=== PATIENT | female | born 1970 | race Caucasian/White ===

== ENCOUNTER 2018-04-29 17:40 | Emergency (ER) | payer MEDICAID ==
[2018-04-29] MEDS ORDERED: CLINDAMYCIN 150 MG CAPSULE PO STA ×2 (18:00→18:27)
[2018-04-29] MEDS ORDERED: oxyCODONE 5 MG TABLET PO STA (18:00)
--- NOTE | 2018-04-29 18:04 | ED Physician Documentation ---
PD HPI HEENT - Stated complaint Stated Complaint: TOOTH PX - Chief complaint Chief Complaint: Wound - History obtained from History obtained from: Patient - History of Present Illness Timing - onset: Yesterday (Painful left mandibular toothache with some facial swelling since yesterday but no fevers.) Review of Systems Constitutional: denies: Fever, Chills Throat: reports: Dental pain / toothache. 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 - Present Medications Home Medications: Ambulatory Orders Medication Instructions Recorded Confirmed Clindamycin HCl [Clindamycin 150MG 2 tab PO QID #80 capsule 04/29/18 CAP] Diazepam [Valium] 10 mg PO ONCE #1 tablet 04/29/18 Oxycodone HCl/Acetaminophen 1 - 2 each PO Q6H PRN #14 tablet 04/29/18 [Percocet 5-325 mg Tablet] - Allergies Allergies/Adverse Reactions: Allergies Allergy/AdvReac Type Severity Reaction Status Date / Time No Known Drug Allergies Allergy Verified 04/29/18 17:48 - Social History Does the pt smoke?: Yes Smoking Status: Current every day smoker Does the pt drink ETOH?: Yes Does the pt have substance abuse?: No - Immunizations Immunizations are current?: Yes - POLST Patient has POLST: No PD ED PE NORMAL - Vitals Vital signs reviewed: Yes - General General: Alert and oriented X 3, No acute distress - HEENT HEENT: Other (She has generally poor dentition with lots of cavities. She is tender over the left mandible, premolars. There is mild overlying facial swelli ng but no palpable abscess to I&D. No sublingual edema or trismus.) - Neck Neck: Supple, no meningeal sign, No bony TTP - Neuro Neuro: Alert and oriented X 3, Normal speech Results - Vitals Vitals: Vital Signs - 24 hr 04/29/18 17:44 Temperature 36.1 C L Heart Rate 106 H Respiratory 16 Rate Blood Pressure 140/90 H O2 Saturation 98 Oxygen O2 Source Room air PD MEDICAL DECISION MAKING - Sepsis Event Vital Signs: Vital Signs - 24 hr 04/29/18 17:44 Temperature 36.1 C L Heart Rate 106 H Respiratory 16 Rate Blood Pressure 140/90 H O2 Saturation 98 Oxygen O2 Source Room air Departure - Departure Disposition: 01 Home, Self Care Clinical Impression: Dental abscess Condition: Good Record reviewed to determine appropriate education?: Yes Instructions: ED Abscess Dental Follow-Up: Mono Meza DDS [Provider Admit Priv/Credential] - Prescriptions: Clindamycin HCl [Clindamycin 150MG CAP] 2 tab PO QID #80 capsule Diazepam [Valium] 10 mg PO ONCE #1 tablet Oxycodone HCl/Acetaminophen [Percocet 5-325 mg Tablet] 1 - 2 each PO Q6H PRN #14 tablet PRN Reason: pain Comments: It is very important that you follow-up with a dentist. When it comes to dental problems like yours, the emergency department can only offer a short-term solution to your long-term problem. A couple of low cost options for dental care include: [facility] in [place], calls [phone] for an appointment Or [facility] in [place], call [phone] for an appointment. If the swelling worsens and you think you might need a procedure/incision and drainage. You can take the single Valium tablets a few minutes prior to emergency department or dental clinic arrival for anxiety. Your blood pressure was elevated today on check into the emergency department. This does not mean that you have hypertension, it is a common phenomenon to come to the emergency department and have elevated blood pressure. I recommend that you see your primary care physician within the week to have it rechecked when you are feeling better. Do not drink or drive while taking narcotic pain medication. Note that many narcotic pain relievers also contain Tylenol/acetaminophen. Please ensure that your total dose of acetaminophen from all sources does not exceed 3 g (3000 mg) per day. You may get constipated while on this medication. Take a stool softener such as Colace twice a day while you are on it. Also add an imhs-[id number] laxative such as senna or MiraLAX on any day that you do not have a bowel movement. If you received a narcotic pain medication or sedative while in the emergency department, do not drive for the next 24 hours.
[2018-04-29 18:38] VITALS: BP 135/88
== END 2018-04-29 18:37 | disposition home or self-care (01) ==
LOC: ED 17:40
DX: K04.7 Periapical abscess without sinus (principal); K02.9 Dental caries, unspecified; F17.200 Nicotine dependence, unspecified, uncomplicated; R03.0 Elevated blood-pressure reading, without diagnosis of hypertension
CPT/HCPCS: 99283; A9270

== ENCOUNTER 2021-10-09 09:08 | Emergency (ER) | payer MEDICAID ==
[2021-10-09] MEDS ORDERED: TETANUS/DIPHTHERIA/PERTUSSIS 0.5 ML SYRINGE IM ONE (09:40)
[2021-10-09] MEDS ORDERED: LIDOCAINE 2%-EPI 1:100000 20 ML MDV SUBQ STA (09:40)
[2021-10-09] MEDS ORDERED: SULFAMETH/TRIMETH DS 800/160 MG TABLET PO STA (10:17)
[2021-10-09] MEDS ORDERED: cephALEXin 250 MG CAPSULE PO STA (10:17)
--- NOTE | 2021-10-09 10:17 | ED Physician Documentation ---
History of Present Illness - Stated complaint Stated Complaint: L HIP PAIN - Chief complaint Chief Complaint: Wound - History obtained from History obtained from: Patient - History of Present Illness Timing: Other (several days) Pain level max: 9 Pain level now: 9 - Additonal information Additional information: 50-year-old female presents with an abscess to the left buttock. She states that she relapsed into using heroin recently. She has had subjective fevers and chills at home. Worse with movement, better with rest. Review of Systems Constitutional: reports: Chills. 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 Home Medications: Ambulatory Orders Medication Instructions Recorded Confirmed Sulfamethox/Trimeth 800/160 1 each PO BID #20 tablet 10/09/21 [Bactrim Ds 800/160] cephALEXin [Keflex] 500 mg PO Q6H #40 cap 10/09/21 - Allergies Allergies/Adverse Reactions: Allergies Allergy/AdvReac Type Severity Reaction Status Date / Time No Known Drug Allergies Allergy Verified 10/09/21 09:31 - Social History Does the pt smoke?: Yes Smoking Status: Current every day smoker Does the pt drink ETOH?: Yes Does the pt have substance abuse?: Yes Substance Use and Type: Marijuana, Meth - Immunizations Immunizations are current?: Yes - POLST Patient has POLST: No PD ED PE NORMAL - Vitals Vital signs reviewed: Yes - General General: Alert and oriented X 3, No acute distress - HEENT HEENT: Moist mucous membranes - Neck Neck: Supple, no meningeal sign - Cardiac Cardiac: RRR - Respiratory Respiratory: Clear bilaterally - Derm Derm: Warm and dry - Extremities Extremities: Other (Left buttock has a large cellulitic area about 10 x 10 cm. There is a 4 x 4 centimeter area of induration and fluctuance.) - Neuro Neuro: Alert and oriented X 3 - Psych Psych: Normal mood, Normal affect Results - Vitals Vitals: Vital Signs - 24 hr 10/09/21 10/09/21 09:27 10:22 Temperature 36.7 C Heart Rate 124 H 101 H Respiratory 18 16 Rate Blood Pressure 175/82 H 130/77 O2 Saturation 96 94 Oxygen O2 Source Room air - Labs Labs: Microbiology 10/09/21 10:07 Wound Culture - Preliminary Buttock - Left Procedures - Abscess I&D (location) Left buttock Preparation: Confirmed with ultrasound, Lidocaine 2%, With epi Incision: Incised with scalpel, Purulent drainage, Loculations broken, Packed, Culture obtained Other: Pt tolerated well, Dressing applied, Antibiotic prescribed PD MEDICAL DECISION MAKING - ED course Complexity details: re-evaluated patient, considered differential, d/w patient ED course: 50-year-old female with a large abscess to the left buttock. This was incised and drained. She has a large amount of surrounding cellulitis as well. Will place on oral antibiotics. She declines any pain medication. Social work also spoke with the patient and gave her resources to help with drug addiction. Tetanus shot given. Patient will return in 2 days for wound check. Patient counseled regarding signs and symptoms for which I believe and urgent re- evaluation would be necessary. Patient with good understanding of and agreement to plan and is comfortable going home at this time This document was made in part using voice recognition software. While efforts are made to proofread this document, sound alike and grammatical errors may occur. Departure - Departure Disposition: 01 Home, Self Care Clinical Impression: Abscess Cellulitis Qualifiers: Site of cellulitis: buttock Qualified Code(s): L03.317 - Cellulitis of buttock Condition: Good Instructions: ED Abscess IandD, ED Infec Skin Cellulitis Prescriptions: Sulfamethox/Trimeth 800/160 [Bactrim Ds 800/160] 1 each PO BID #20 tablet cephALEXin [Keflex] 500 mg PO Q6H #40 cap Comments: Please return here in 2 to 3 days for a wound check. Take all antibiotics until gone. Return if you worsen. Your prescriptions were sent to [facility] in [place] Discharge Date/Time: 10/09/21 11:16
[2021-10-09 10:23] VITALS: BP 130/77
--- NOTE | 2021-10-11 08:17 | ED Physician Documentation ---
ED Addendum - Addendum Addendum: 10/11/21 08:15 Patient's culture results reviewed. Positive for MRSA. Resistant to Bactrim. Patient been discharged on Keflex and Bactrim. Will transition to clindamycin as single agent with instructions to complete full 7-day course. Prescription sent to patient's preferred pharmacy. Patient contacted by nursing staff and informed of change.
== END 2021-10-09 11:16 | disposition home or self-care (01) ==
LOC: ED 09:08
DX: L02.31 Cutaneous abscess of buttock (principal); L03.317 Cellulitis of buttock; B95.62 Methicillin resistant Staphylococcus aureus infection as the cause of diseases classified elsewhere; F17.200 Nicotine dependence, unspecified, uncomplicated
CPT/HCPCS: 10061; 87070; 87181; 87205; 90471; 90715; 99283; 99284; A9270

== ENCOUNTER 2021-10-11 16:23 | Emergency (ER) | payer MEDICAID ==
[2021-10-11 16:41] VITALS: BP 149/92
--- NOTE | 2021-10-11 16:42 | ED Physician Documentation ---
PD HPI WOUND RECHECK - Stated complaint Stated Complaint: FOLLOW UP ON LT HIP PX - Chief complaint Chief Complaint: Wound - Histroy obtained from History obtained from: Patient - History of Present Illness Location: Other (L buttock) - Additional information Additional information: Patient is a 50-year-old female who presents to the emergency department for a w ound check after incision and drainage of an abscess 2 days ago on the left buttock. She has been taking Bactrim and Keflex at home. Her wound culture earlier today showed MRSA that was resistant to Bactrim. A prescription was sent to [facility] in [place] for her. Patient states that she is doing well, minimal pain. No fevers. Decreased drainage. Nothing makes it better or worse. 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 - Present Medications Home Medications: Ambulatory Orders Medication Instructions Recorded Confirmed Sulfamethox/Trimeth 800/160 1 each PO BID #20 tablet 10/09/21 [Bactrim Ds 800/160] cephALEXin [Keflex] 500 mg PO Q6H #40 cap 10/09/21 clindamycin HCL [Cleocin HCl] 450 mg PO TID 7 Days #63 cap 10/11/21 - Allergies Allergies/Adverse Reactions: Allergies Allergy/AdvReac Type Severity Reaction Status Date / Time No Known Drug Allergies Allergy Verified 10/09/21 09:31 - Social History Does the pt smoke?: Yes Smoking Status: Current every day smoker Does the pt drink ETOH?: Yes Does the pt have substance abuse?: Yes - Immunizations Immunizations are current?: Yes - POLST Patient has POLST: No PD ED PE NORMAL - Vitals Vital signs reviewed: Yes - General General: Alert and oriented X 3, No acute distress - HEENT HEENT: Moist mucous membranes - Neck Neck: Supple, no meningeal sign - Derm Derm: Warm and dry - Extremities Extremities: Other (Healing abscess to the left buttock. No further purulent drainage. Erythema improving.) - Neuro Neuro: Alert and oriented X 3 Results - Vitals Vitals: Vital Signs - 24 hr 10/11/21 16:34 Temperature 36.6 C Heart Rate 99 Respiratory 18 Rate Blood Pressure 149/92 H O2 Saturation 98 Oxygen O2 Source Room air PD MEDICAL DECISION MAKING - ED course Complexity details: reviewed results, re-evaluated patient, considered differential, d/w patient ED course: The packing was removed. A clean dressing was applied. Cultures reviewed. Clindamycin was already sent into the pharmacy for her earlier today. We will have her stop the Bactrim and Keflex and start the clindamycin. Patient counseled regarding signs and symptoms for which I believe and urgent re- evaluation would be necessary. Patient with good understanding of and agreement to plan and is comfortable going home at this time This document was made in part using voice recognition software. While efforts are made to proofread this document, sound alike and grammatical errors may occur. Departure - Departure Disposition: 01 Home, Self Care Clinical Impression: Abscess Condition: Good Instructions: ED Abscess IandD Follow-Up: your,doctor in 4-5 days [Other] Comments: A new prescription of clindamycin was sent to [facility] in [place] for you. You can stop the Bactrim and Keflex. Take all antibiotics until gone. Return if you worsen. If you're failing to improve over the next few days, please return for another wound check. Discharge Date/Time: 10/11/21 16:45
== END 2021-10-11 16:45 | disposition home or self-care (01) ==
LOC: ED 16:23
DX: L02.31 Cutaneous abscess of buttock (principal); B95.62 Methicillin resistant Staphylococcus aureus infection as the cause of diseases classified elsewhere; Z16.39 Resistance to other specified antimicrobial drug; F17.200 Nicotine dependence, unspecified, uncomplicated
CPT/HCPCS: 99281; 99282

== ENCOUNTER 2022-10-16 11:15 | Inpatient (IN) | payer MEDICAID ==
[2022-10-16] MEDS ORDERED: CEFEPIME 1 GM in SODIUM CHLORIDE 0.9% MINIBAG 100 ML IV STA (12:39)
[2022-10-16] MEDS ORDERED: VANCOMYCIN INJ 1.5 GM in SODIUM CHLORIDE 0.9% 500 ML IV STA (12:39)
[2022-10-16] MEDS ORDERED: NICOTINE 21 MG PATCH TOP STA (12:40)
[2022-10-16] MEDS ORDERED: LORazepam 2 MG/ML VIAL IVP STA (12:40)
--- NOTE | 2022-10-16 12:54 | ED Physician Documentation ---
PD HPI WOUND RECHECK - Stated complaint Stated Complaint: LEG WOUND - Chief complaint Chief Complaint: Wound - Histroy obtained from History obtained from: Patient - Additional information Additional information: 51-year-old woman with history of hospitalization for MRSA, and longstanding IV drug use presents with multiple wounds that have progressed on all extremities. The worst on the right lower extremity, she is developed purulent foul-smelling wounds there. She does not feel systemically ill with fevers or chills. 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 - Allergies Allergies/Adverse Reactions: Allergies Allergy/AdvReac Type Severity Reaction Status Date / Time No Known Drug Allergies Allergy Verified 10/16/22 11:31 - Social History Does the pt smoke?: Yes Smoking Status: Current every day smoker Does the pt drink ETOH?: Yes Does the pt have substance abuse?: Yes - Immunizations Immunizations are current?: Yes - POLST Patient has POLST: No PD ED PE NORMAL - Vitals Vital signs reviewed: Yes - General General: Alert and oriented X 3, No acute distress - Cardiac Cardiac: RRR, No murmur - Respiratory Respiratory: No respiratory distress, Clear bilaterally - Abdomen Abdomen: Non tender - Extremities Extremities: Other (She has multiple wounds on all extremities. There are some early abscesses on both deltoids and track ashby. She has an early abscess on the medial left knee and multiple deep ulcers and necrotic areas mostly on the right lateral lower leg.) - Neuro Neuro: Alert and oriented X 3, Normal speech Results - Vitals Vitals: Vital Signs - 24 hr 10/16/22 10/16/22 11:26 13:14 Temperature 36.8 C 36.6 C Heart Rate 99 79 Respiratory 16 12 Rate Blood Pressure 148/86 H 110/58 L O2 Saturation 98 98 Oxygen O2 Source Room air - Labs Labs: Laboratory Tests 10/16/22 10/16/22 10/16/22 12:52 12:52 12:52 WBC 9.0 RBC 4.95 Hgb 13.4 Hct 41.5 MCV 83.8 MCH 27.1 MCHC 32.3 RDW 12.5 Plt Count 392 MPV 9.6 Neut # (Auto) 6.1 Lymph # (Auto) 1.9 Ralls # (Auto) 0.6 Eos # (Auto) 0.4 Baso # (Auto) 0.1 Absolute Nucleated RBC 0.00 Nucleated RBC % 0.0 Sodium 140 Potassium 3.4 L Chloride 105 Carbon Dioxide 28 Anion Gap 7.0 BUN 14 Creatinine 0.7 Estimated GFR (MDRD) 89 Glucose 129 H Lactic Acid 1.2 Calcium 8.9 Magnesium 2.1 Salicylates < 6.0 Acetaminophen < 10 L Ethyl Alcohol < 5.0 Procedures - General procedure General procedure: She was difficult for IV access, I personally placed a long 22-gauge IV in the right cephalic vein using real-time ultrasound guidance which flushed and stephanie well. PD Medical Decision Making - ED course ED course: 51-year-old woman with IV drug use presents with multiple skin wounds and ulcers, some of which are quite large including necrotic area to the right calf that is palm-sized and multiple abscesses, the largest of which is on the right lateral upper leg measuring about 5 cm in diameter. A culture was taken from that 1 during exam. She is not systemically ill. Her CBC is reviewed and normal. Lactate reviewed and normal. I discussed the case with Dr. Ricco Beavers, our on-call surgeon at 1:25 PM as he will need to consult and consider operative wound care. I presented the patient to Dr. Calvillo, our hospitalist at 1:30 PM. She received 2 mg of IV lorazepam here with excellent response with regard to anxiolysis as she was very anxious. She received cefepime and vancomycin for empiric coverage for skin infection. There is no evidence of NSTI. Departure - Departure Disposition: [facility] DC/Xfer Clinical Impression: Multiple abscesses of both legs, IV drug user Condition: Serious
[2022-10-16 13:22] LABS: BASOPHILS # (AUTO) 0.1 10^3/uL (0.0-0.1); BASOPHILS % (AUTO) 0.7 %; EOSINOPHILS # (AUTO) 0.4 10^3/uL (0.0-0.7); HCT - HEMATOCRIT 41.5 % (37.0-47.0); HGB - HEMOGLOBIN 13.4 g/dL (12.0-16.0); LYMPHOCYTES # (AUTO) 1.9 10^3/uL (1.5-3.5); LYMPHOCYTES % (AUTO) 20.7 %; MEAN CORPUSCULAR HEMOGLOBIN 27.1 pg (27.0-31.0); MEAN CORPUSCULAR HGB CONC 32.3 g/dL (32.0-36.0); MEAN CORPUSCULAR VOLUME 83.8 fL (81.0-99.0); MEAN PLATELET VOLUME 9.6 fL (7.9-10.8); MONOCYTES # (AUTO) 0.6 10^3/uL (0.0-1.0); MONOCYTES % (AUTO) 6.9 %; NEUTROPHILS # (AUTO) 6.1 10^3/uL (1.5-6.6); NEUTROPHILS % (AUTO) 67.5 %; PLT - PLATELET COUNT 392 10^3/uL (130-450); RED BLOOD COUNT 4.95 10^6/uL (4.20-5.40); RED CELL DISTRIBUTION WIDTH 12.5 % (12.0-15.0)
[2022-10-16 13:31] LABS: ACETAMINOPHEN < 10 ug/mL (10-30); BUN - BLOOD UREA NITROGEN 14 mg/dL (6-20); CALCIUM 8.9 mg/dL (8.5-10.3); CARBON DIOXIDE - CO2 28 mmol/L (21-32); CHLORIDE 105 mmol/L (101-111); CREATININE 0.7 mg/dL (0.4-1.0); ETOH - ETHANOL < 5.0 mg/dL; GFR - MDRD 89 (>89); GLUCOSE 129 mg/dL (70-100); MAGNESIUM 2.1 mg/dL (1.7-2.8); POTASSIUM 3.4 mmol/L (3.5-5.0); SALICYLATE < 6.0 mg/dL; SODIUM 140 mmol/L (135-145)
[2022-10-16] MEDS ORDERED: ONDANSETRON 4 MG/2 ML VIAL IVP PRN (13:35)
[2022-10-16] MEDS ORDERED: ACETAMINOPHEN 325 MG TABLET PO PRN (13:35)
[2022-10-16] MEDS ORDERED: oxyCODONE 5 MG TABLET PO PRN (13:35)
[2022-10-16] MEDS ORDERED: SODIUM CHLORIDE FLUSH 0.9% 10 ML SYRINGE IVP PRN (13:35)
[2022-10-16] MEDS ORDERED: ONDANSETRON ODT 4 MG TABLET TL PRN (13:35)
--- NOTE | 2022-10-16 13:35 | HISTORY & PHYSICAL EXAMINATION ---
Chief Complaint - Chief Complaint Chief Complaint: oozing wounds <Stella Calvillo - Last Filed: 10/16/22 18:23> History of Present Illness <Ricky Williamson - Last Filed: 10/16/22 16:26> - Admitted From Admitted From:: home - History Obtained From Records Reviewed: [facility] History obtained from: patient Exam Limitations: none <RajinderStella Mcleod - Last Filed: 10/16/22 18:23> - History of Present Illness HPI Comment/Other: HPI Cont w/ Student: Onset of ulcerations were a few months back, but patient came in today because of worsening "size and oozing" of ulcerations on right lateral leg. The ulcers are characterized as "itchy and painful" rated 7/10 pain. When asked about impact on life, patient states that she's worried about how bad these abbesses can get and would like to get them checked out. (TeriRicky) 51-year-old white female who has an IV drug abuse problem with heroin and cocaine. Lately she has been cutting her heroin and cocaine with something called xylazine. Xylazine can cause tissue necrosis. She says that she has had multiple wounds for a while now on her legs and arms and she is coming in because they smell. She says that they are also turning black. She denies fever, chills, sweats. Denies any weakness. She has had previous hospitalizations for MRSA. In the emergency room her admission temperature was 36.8. Heart rate 99. Blood pressure 148/86. Respirations 16. 98% on room air. Physical exam findings included an alert and oriented female, no respiratory distress, a benign abdomen but she had multiple wounds on all extremities. Early abscesses on the deltoids, early abscess in the medial left knee and multiple deep ulcers and necrotic areas along the right lateral lower leg. Some of these are as large as the hand. Her CBC was normal. Lactic acid was 1.2. We discussed the fact that she may need surgical intervention. He states that he is already spoken to general surgery and general surgery is on board for doing debridement if needed. (Stella Calvillo) History - Family & Social History Family History: Mother: , Cancer ("Cancer of abdomen" ), Father: Alive and Well (Dx: Hep C) Living arrangement: Other (Living with boyfriend at [facility]) Living Situation: Other (See living arrangement ) Social History Notes: Pt has a daughter steven that lives in [place]. 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 Pt notes verbally her power of business attorney is Zbigniew, her boyfriend, whom she lives with at [facility]. - Substance History Use: Uses substance without health or social issues: Cocaine, Opioid (Heroin, 1- 2 times a day ) Abuse: Recurrent use of substance despite neg consequences: Cocaine, Opioid <Ricky Williamson - Last Filed: 10/16/22 16:26> - Past Medical History MRSA Hx?: Yes Other Past Medical History: Previous skin infection and bacteremia with MRSA in [facility]. She says she was at the [facility], [place] operated by [facility] approximately 5 months ago when mom . 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 - Family & Social History Living arrangement: At home - POLST Patient has POLST: No POLST Status: Full Code <Stella Calvillo - Last Filed: 10/16/22 18:23> Meds/Allgy <Ricky Williamson - Last Filed: 10/16/22 16:26> <Stella Calvillo - Last Filed: 10/16/22 18:23> - Home Medications Home Medications: Ambulatory Orders Medication Instructions Recorded Confirmed No Known Home Medications 10/16/22 10/16/22 - Allergies Allergies/Adverse Reactions: Allergies Allergy/AdvReac Type Severity Reaction Status Date / Time No Known Drug Allergies Allergy Verified 10/16/22 11:31 Review of Systems - Integumentary Integumentary: reports: Pruritis, Other (Ulcerations) <Ricky Williamson - Last Filed: 10/16/22 16:26> - All Other Systems All Other Systems: reports: Other (11 point review of systems was done. She was adamant that other than the skin problem she did not have any other positive review of systems.) <Stella Calvillo - Last Filed: 10/16/22 18:23> <Stella Calvillo - Last Filed: 10/16/22 18:23> Prior Level of Functionality: Completely independent with activities of daily living. Dresses herself, feed herself. (Stella Calvillo) Exam - Physical Exam General Appearance: positive: Anxious Skin: positive: Puncture wound (R lateral leg has 3 large 1" ulcerations, L leg has 4 smaller ulcerations.), Other <Ricky Williamson - Last Filed: 10/16/22 16:26> - Physical Exam General Appearance: positive: Alert, Anxious, Other (Thin well-groomed female. No acute distress. Very calm. No evidence of withdrawal) Eyes Bilateral: positive: PERRL, EOMI ENT: positive: No signs of dehydration Neck: positive: No JVD. negative: Stiff neck Respiratory: positive: No respiratory distress. negative: Wheezes, Rales, Rhonchi Cardiovascular: positive: Regular rate & rhythm. negative: Systolic murmur Peripheral Pulses: positive: 1+ Abdomen: positive: Non-tender, No organomegaly, Nml bowel sounds Extremities: positive: Other (Tender upper right biceps area with multiple, multiple abscesses visible all along her skin muscle. Oozing. Multiple abscesses on dorsum of hand, left lateral leg, right leg, these were centimeter by centimeter those 2 are using 1 or 1 leg. Many of these bruising. Slightly warm. None of these s) Neurologic/Psychiatric: positive: Oriented x3, CN's nml (2-12), Motor nml <Stella Calvillo - Last Filed: 10/16/22 18:23> - Vital Signs Vital Signs: Vital Signs x48h Temp Pulse Pulse Resp BP BP Pulse Ox 10/16/22 16:00 36.4 C L 82 18 126/71 99 10/16/22 14:40 36.4 C L 85 18 126/71 99 10/16/22 13:14 36.6 C 79 12 110/58 L 98 10/16/22 11:26 36.8 C 99 16 148/86 H 98 Conclusion/Plan - Problem List (1) Multiple abscesses of both legs Conclusion/Plan: Patient left AMA - Lab Results Fish Bones: 10/16/22 14:15 10/16/22 14:15 <Ricky Williamson - Last Filed: 10/16/22 16:26> - Problem List (2) IV drug user Conclusion/Plan: With heroin. She has been through rehab a couple of times. She says that she just back slides. Right now she is not thinking so much about rehab but just getting the skin infection taken care of (3) Hypokalemia Conclusion/Plan: Oral replacement ordered. - Lab Results Lab results reviewed: Yes Fish Bones: 10/16/22 14:15 10/16/22 14:15 <Stella Calvillo - Last Filed: 10/16/22 18:23> Core Measures - Anticipated LOS I expect patient to be DC'd or transferred within 96 hours.: Yes - DVT/VTE - Prophylaxis VTE/DVT Prophylaxis med ordered at admit?: Yes <Stella Calvillo - Last Filed: 10/16/22 18:23>
[2022-10-16 14:21] LABS: BASOPHILS # (AUTO) 0.1 10^3/uL (0.0-0.1); BASOPHILS % (AUTO) 0.7 %; EOSINOPHILS # (AUTO) 0.4 10^3/uL (0.0-0.7); EOSINOPHILS % (AUTO) 4.5 %; HCT - HEMATOCRIT 43.9 % (37.0-47.0); LYMPHOCYTES # (AUTO) 1.7 10^3/uL (1.5-3.5); LYMPHOCYTES % (AUTO) 20.9 %; MEAN CORPUSCULAR HGB CONC 31.9 g/dL (32.0-36.0); MEAN CORPUSCULAR VOLUME 84.6 fL (81.0-99.0); MEAN PLATELET VOLUME 9.3 fL (7.9-10.8); MONOCYTES # (AUTO) 0.6 10^3/uL (0.0-1.0); MONOCYTES % (AUTO) 7.9 %; NEUTROPHILS # (AUTO) 5.4 10^3/uL (1.5-6.6); NEUTROPHILS % (AUTO) 65.8 %; PLT - PLATELET COUNT 373 10^3/uL (130-450); RED BLOOD COUNT 5.19 10^6/uL (4.20-5.40); RED CELL DISTRIBUTION WIDTH 12.5 % (12.0-15.0); WHITE BLOOD COUNT 8.1 x10^3/uL (4.8-10.8)
--- NOTE | 2022-10-16 14:31 | PHARMACY PROGRESS NOTE ---
- Therapy Status Therapy status: Awaiting steady state Basis for treatment: Empirical Treatment indication: SSTI, hx MRSA Trough goal: AUC 400-600 mcg*hr/mL - CHELSEY Risk Risk level for Acute Kidney Injury: Low - Monitoring and Recommendation Clinical response to treatment: I&O Previous 24 hours 10/14/22 10/15/22 10/16/22 23:59 23:59 23:59 Intake Total 100 Balance 100 Lab Results 10/16/22 12:52 BUN 14 Creatinine 0.7 Estimated GFR (MDRD) 89 Monitoring plan: Daily serum creatinine Next trough due (date/time): 10/18 @ 1330 Areas for additional monitoring: IV to PO when appropriate, Therapy de- escalation based on culture results Pharmacy recommendation: Continue current regime (Patient received a loading dose of 1.5 gm in the ER (10/16 @ 1400). Initiate maintenance dose of 1.25 gm IV q12h starting 10/17 @ 0200 for predicted AUC/NEO of 454 mcg*hr/mL.)
[2022-10-16 14:32] LABS: ALBUMIN 3.2 g/dL (3.2-5.5); ALBUMIN/GLOBULIN RATIO 0.7 (1.0-2.2); BILIRUBIN,TOTAL 0.7 mg/dL (0.2-1.0); CALCIUM 8.9 mg/dL (8.5-10.3); CREATININE 0.7 mg/dL (0.4-1.0); POTASSIUM 3.3 mmol/L (3.5-5.0); TOTAL PROTEIN 7.7 g/dL (6.7-8.2)
--- NOTE | 2022-10-16 15:33 | PROVIDER PROGRESS NOTE ---
Subjective - Prog Note Date Prog Note Date: 10/16/22 Prog Note Time: 15:30 - Subjective Pt reports feeling: No change (No change from ER visit.) Subjective: Patient is a 51-yo-F with a history of MRSA infections and recreational drug use coming in today with "sores all over her body". Patient states that for the last few months she's noticed sores on both of her arms and her legs. However, what made her come get evaluated in the hospital today is that the ulcerations on her R leg has been "getting bigger and oozing more". The sores are characterized as itchy and painful, rated a 7/10. Patient has not tried any medications for this issue. Itching makes it worse and the patient finds it difficult to stop scratching. Current Medications - Current Medications Current Medications: Not currently taking any medications at home. Objective - Vital Signs/Intake & Output Vital Signs: Vital Signs x48h Temp Pulse Resp BP Pulse Ox 10/16/22 13:14 36.6 C 79 12 110/58 L 98 10/16/22 11:26 36.8 C 99 16 148/86 H 98 Intake & Output: Intake & Output 10/13/22 10/14/22 10/15/22 10/16/22 23:59 23:59 23:59 23:59 Intake Total 100 Balance 100 - Objective General Appearance: positive: Alert, Anxious Skin: positive: Puncture wound, Other (Ulcerations on bilateral upper arms and Bilateral lateral quads. R lateral leg has 3 large 1" ulcerations, L leg has 4 smaller ulcerations.) Neurologic/Psychiatric: positive: Oriented x3 - Lab Results Fish Bones: 10/16/22 14:15 10/16/22 14:15 Other Labs: Lab Results x24hrs 10/16/22 10/16/22 10/16/22 Range/Units 14:15 14:15 12:52 WBC 8.1 (4.8-10.8) x10^3/uL RBC 5.19 (4.20-5.40) 10^6/uL Hgb 14.0 (12.0-16.0) g/dL Hct 43.9 (37.0-47.0) % MCV 84.6 (81.0-99.0) fL MCH 27.0 (27.0-31.0) pg MCHC 31.9 L (32.0-36.0) g/dL RDW 12.5 (12.0-15.0) % Plt Count 373 (130-450) 10^3/uL MPV 9.3 (7.9-10.8) fL Neut # (Auto) 5.4 (1.5-6.6) 10^3/uL Lymph # (Auto) 1.7 (1.5-3.5) 10^3/uL [place] # (Auto) 0.6 (0.0-1.0) 10^3/uL Eos # (Auto) 0.4 (0.0-0.7) 10^3/uL Baso # (Auto) 0.1 (0.0-0.1) 10^3/uL Absolute Nucleated RBC 0.00 x10^3/uL Nucleated RBC % 0.0 /100WBC Sodium 141 (135-145) mmol/L Potassium 3.3 L (3.5-5.0) mmol/L Chloride 106 (101-111) mmol/L Carbon Dioxide 30 (21-32) mmol/L Anion Gap 5.0 L (6-13) BUN 14 (6-20) mg/dL Creatinine 0.7 (0.4-1.0) mg/dL Estimated GFR (MDRD) 89 (>89) Glucose 101 H (70-100) mg/dL Lactic Acid 1.2 (0.5-2.2) mmol/L Calcium 8.9 (8.5-10.3) mg/dL Magnesium (1.7-2.8) mg/dL Total Bilirubin 0.7 (0.2-1.0) mg/dL AST 38 (10-42) IU/L ALT 33 (10-60) IU/L Alkaline Phosphatase 91 (42-121) IU/L Total Protein 7.7 (6.7-8.2) g/dL Albumin 3.2 (3.2-5.5) g/dL Globulin 4.5 H (2.1-4.2) g/dL Albumin/Globulin Ratio 0.7 L (1.0-2.2) Salicylates mg/dL Acetaminophen (10-30) ug/mL Ethyl Alcohol mg/dL 10/16/22 10/16/22 Range/Units 12:52 12:52 WBC 9.0 (4.8-10.8) x10^3/uL RBC 4.95 (4.20-5.40) 10^6/uL Hgb 13.4 (12.0-16.0) g/dL Hct 41.5 (37.0-47.0) % MCV 83.8 (81.0-99.0) fL MCH 27.1 (27.0-31.0) pg MCHC 32.3 (32.0-36.0) g/dL RDW 12.5 (12.0-15.0) % Plt Count 392 (130-450) 10^3/uL MPV 9.6 (7.9-10.8) fL Neut # (Auto) 6.1 (1.5-6.6) 10^3/uL Lymph # (Auto) 1.9 (1.5-3.5) 10^3/uL [place] # (Auto) 0.6 (0.0-1.0) 10^3/uL Eos # (Auto) 0.4 (0.0-0.7) 10^3/uL Baso # (Auto) 0.1 (0.0-0.1) 10^3/uL Absolute Nucleated RBC 0.00 x10^3/uL Nucleated RBC % 0.0 /100WBC Sodium 140 (135-145) mmol/L Potassium 3.4 L (3.5-5.0) mmol/L Chloride 105 (101-111) mmol/L Carbon Dioxide 28 (21-32) mmol/L Anion Gap 7.0 (6-13) BUN 14 (6-20) mg/dL Creatinine 0.7 (0.4-1.0) mg/dL Estimated GFR (MDRD) 89 (>89) Glucose 129 H (70-100) mg/dL Lactic Acid (0.5-2.2) mmol/L Calcium 8.9 (8.5-10.3) mg/dL Magnesium 2.1 (1.7-2.8) mg/dL Total Bilirubin (0.2-1.0) mg/dL AST (10-42) IU/L ALT (10-60) IU/L Alkaline Phosphatase (42-121) IU/L Total Protein (6.7-8.2) g/dL Albumin (3.2-5.5) g/dL Globulin (2.1-4.2) g/dL Albumin/Globulin Ratio (1.0-2.2) Salicylates < 6.0 mg/dL Acetaminophen < 10 L (10-30) ug/mL Ethyl Alcohol < 5.0 mg/dL Assessment/Plan - Problem List (1) Multiple abscesses of both legs Impression: R lateral leg has 3 large 1" ulcerations, L leg has 4 smaller ulcerations. (2) IV drug user Impression: Current Heroin user, 1-2 times a day, in and out of rehab
[2022-10-16 15:47] VITALS: BP 126/71
--- NOTE | 2022-10-16 16:10 | Discharge Plan ---
Discharge Plan Problem Reviewed?: Yes Disposition: Against Medical Advice Condition: Serious No Smoking: If you smoke, Please STOP! Call for help.
--- NOTE | 2022-10-16 16:16 | CONSULTATION NOTE ---
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 - POLST Patient has POLST: No Meds/Allgy - Home Medications Home Medications: Ambulatory Orders Medication Instructions Recorded Confirmed No Known Home Medications 10/16/22 10/16/22 - Allergies Allergies/Adverse Reactions: Allergies Allergy/AdvReac Type Severity Reaction Status Date / Time No Known Drug Allergies Allergy Verified 10/16/22 11:31 Exam - Vital Signs Vital Signs: Vital Signs x48h Temp Pulse Pulse Resp BP BP Pulse Ox 10/16/22 16:00 36.4 C L 82 18 126/71 99 10/16/22 14:40 36.4 C L 85 18 126/71 99 10/16/22 13:14 36.6 C 79 12 110/58 L 98 10/16/22 11:26 36.8 C 99 16 148/86 H 98 - Physical Exam General Appearance: positive: No acute distress, Lethargic Eyes Bilateral: positive: PERRL, EOMI, No scleral icterus ENT: positive: No signs of dehydration Neck: positive: No JVD, Trachea midline Respiratory: positive: No respiratory distress Abdomen: positive: Non-tender, No distention Extremities: positive: Other (muliple areas of skin inflammation extemities, primarily lower extremities. nearly 4 cm dry black eschar rle area of prior recent debridment rle that is open and relatively clean multiple areas up to 2 cm areas of skin inflammation/ induration without fluctuance, or significant cellulitis l) Conclusion/Plan - Lab Results Fish Bones: 10/16/22 14:15 10/16/22 14:15 - Other Other Results/Comments: multiple small areas extremities with induration without significant cellulitis or fluctuance dry black eschar right lower leg without cellulitis or fluctuance agree with abxs and dressing care. will follow closely and perform I and D and or debridement if she develops a fluctuant abscess or area of moist necrosis currently she mostly has areas of inflammation and induration
[2022-10-16] MEDS ORDERED: SODIUM CHLORIDE FLUSH 0.9% 10 ML SYRINGE IVP SCH (17:00)
--- NOTE | 2022-10-16 18:27 | DISCHARGE SUMMARY ---
Discharge Summary Admit Date: 10/16/22 Discharge Date: 10/16/22 Discharging Provider: Stella Calvillo MD Primary Care Provider: No PCP Code Status: Attempt Resuscitation Condition at Discharge: Serious Discharge Disposition: 07 Against Medical Advice - DIAGNOSES Discharge Diagnoses with Status of Each Condition: 1. Multiple abscesses of arms and legs 2. IV drug abuser 3. Hypokalemia - HPI History of Present Illness: Patient was in the hospital less than 3 hours. Please refer to history and physical. We were going to start vancomycin, and surgical consult had already seen here and scheduled her for possible incision and debridement. She left AMA - ALLERGIES Allergies/Adverse Reactions: Allergies Allergy/AdvReac Type Severity Reaction Status Date / Time No Known Drug Allergies Allergy Verified 10/16/22 11:31 - MEDICATIONS Home Medications: Ambulatory Orders Medication Instructions Recorded Confirmed No Known Home Medications 10/16/22 10/16/22 - LABS Result Diagrams: 10/16/22 14:15 10/16/22 14:15
[2022-10-17] MEDS ORDERED: VANCOMYCIN INJ 1 GM, VANCOMYCIN INJ 250 MG in SODIUM CHLORIDE 0.9% 250 ML IV SCH (02:00)
[2022-10-17] MEDS ORDERED: ENOXAPARIN 40 MG/0.4 ML SYRINGE SUBQ SCH (09:00)
== END 2022-10-16 16:08 | disposition left against medical advice (07) | DRG 603 ==
LOC: ED 11:15 → MS2 13:35
PROVIDERS: ADMIT Specialist; ATTEND Specialist
DX: L02.416 Cutaneous abscess of left lower limb (principal); L02.413 Cutaneous abscess of right upper limb; I96 Gangrene, not elsewhere classified; L02.415 Cutaneous abscess of right lower limb; F11.10 Opioid abuse, uncomplicated; F14.10 Cocaine abuse, uncomplicated; Z53.29 Procedure and treatment not carried out because of patient's decision for other reasons; E87.6 Hypokalemia; Z86.14 Personal history of Methicillin resistant Staphylococcus aureus infection; F17.200 Nicotine dependence, unspecified, uncomplicated; F41.9 Anxiety disorder, unspecified
CPT/HCPCS: 36415; 80048; 80053; 80307; 80320; 80329; 83605; 83735; 85025; 87040; 96365; 96375; 99284; 99285; A9270; J2060; J3370

== ENCOUNTER 2022-12-18 18:22 | Emergency (ER) | payer MEDICAID ==
[2022-12-18 18:29] VITALS: BP 160/84
[2022-12-18] MEDS ORDERED: CLINDAMYCIN 150 MG CAPSULE PO STA (18:36)
--- NOTE | 2022-12-18 18:36 | ED Physician Documentation ---
PD HPI LOWER EXT INJURY - Stated complaint Stated Complaint: L LEG PX - Chief complaint Chief Complaint: Ext Problem - History obtained from History obtained from: Patient - Additional information Additional information: 52-year-old woman who uses a intramuscular drugs. She has been having left leg pain and heat over the last couple of days and felt hot at home although no measured fever. Of note I actually admitted her for multiple abscesses about 2 months ago but she promptly signed out AMA. She continues to abuse drugs. 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 - Present Medications Home Medications: Ambulatory Orders Medication Instructions Recorded Confirmed clindamycin HCL [Cleocin HCl] 300 mg PO QID #28 cap 12/18/22 - Allergies Allergies/Adverse Reactions: Allergies Allergy/AdvReac Type Severity Reaction Status Date / Time No Known Drug Allergies Allergy Verified 12/18/22 18:26 - Social History Does the pt smoke?: Yes Smoking Status: Current every day smoker Does the pt drink ETOH?: Yes Does the pt have substance abuse?: Yes - Immunizations Immunizations are current?: Yes - POLST Patient has POLST: No POLST Status: Full Code PD ED PE NORMAL - Vitals Vital signs reviewed: Yes - General General: Alert and oriented X 3, No acute distress - Extremities Extremities: Other (Her legs look significantly better than they did when I admitted her 2 months ago. There is 1 draining wound on the right lateral thigh and 1 on the left anterior thigh. She has mild cellulitis of the anterior left h[place].) - Neuro Neuro: Alert and oriented X 3, Normal speech Results - Vitals Vitals: Vital Signs - 24 hr 12/18/22 18:26 Temperature 36.5 C Heart Rate 110 H Respiratory 18 Rate Blood Pressure 160/84 H O2 Saturation 97 Oxygen O2 Source Room air PD Medical Decision Making - ED course ED course: Culture from 2 months ago reviewed. It was MRSA that was also resistant to Bactrim but was sensitive to clindamycin so this would be a reasonable choice. Departure - Departure Disposition: 01 Home, Self Care Clinical Impression: Wound infection, Injection of illicit drug within last 12 months Condition: Good Record reviewed to determine appropriate education?: Yes Instructions: ED Wound Care Prescriptions: clindamycin HCL [Cleocin HCl] 300 mg PO QID #28 cap Comments: You should shower daily with soap and water. Keep them covered with dry dressings. Call your doctor to arrange a follow-up appointment, make the next available appointment. In the interim, return anytime if worse or if new symptoms develop. I strongly suggest that you check into detox, there is 1 in [place]: [facility] service in [place], [place] Address: [address] [place] [address], [place] [address]
== END 2022-12-18 19:10 | disposition home or self-care (01) ==
LOC: ED 18:22
DX: L08.9 Local infection of the skin and subcutaneous tissue, unspecified (principal); F17.200 Nicotine dependence, unspecified, uncomplicated
CPT/HCPCS: 99282; 99283; A9270

== ENCOUNTER 2023-12-08 23:19 | Inpatient (IN) | payer MEDICAID ==
--- NOTE | 2023-12-08 23:34 | ED Physician Documentation ---
PD HPI DYSPNEA - Stated complaint Stated Complaint: SOA - History obtained from History obtained from: Patient - Additional information Additional information: HPI from patient Patient complains of gradual onset of dyspnea over the past 2 days, steadily worsening, associated with cough and wheezing. She complains of fatigue, sweats and chills (has not taken her temperature at home).Past medical history includes asthma although, per her description, it sounds like she has not had asthma exacerbations for many years.She also readily admits to IV drug use (heroin, fentanyl, cocaine amongst others). She says the last time she used was ye sterday. Review of Systems Constitutional: reports: Chills, Sweats Cardiac: denies: Chest pain / pressure, Palpitations, Pedal edema Respiratory: reports: Dyspnea, Cough, Wheezing. 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 - Present Medications Home Medications: Ambulatory Orders Medication Instructions Recorded Confirmed No Known Home Medications 12/08/23 12/08/23 - Allergies Allergies/Adverse Reactions: Allergies Allergy/AdvReac Type Severity Reaction Status Date / Time No Known Drug Allergies Allergy Verified 12/08/23 23:44 - Social History Does the pt smoke?: Yes Smoking Status: Current every day smoker Does the pt drink ETOH?: Yes Does the pt have substance abuse?: Yes - Immunizations Immunizations are current?: Yes - POLST Patient has POLST: No POLST Status: Full Code PD ED PE NORMAL - Vitals Vital signs reviewed: Yes - General General: Alert and oriented X 3, Well developed/nourished, Other (tachypneic, speaking in abbreviated (1-2 word) sentences) - Neck Neck: Supple, no meningeal sign - Abdomen Abdomen: Soft, Non tender - Extremities Extremities: No edema PD ED PE EXPANDED - Cardiac Cardiac: Tachy, Regular Rhythm - Respiratory Respiratory: Wheezing, Rhonchi - Derm Derm: Track ashby (BUE) Results - Vitals Vitals: Vital Signs - 24 hr 12/08/23 12/08/23 12/08/23 23:35 23:40 23:55 Temperature 37.4 C Heart Rate 113 H 103 H 94 Respiratory 25 H 28 H Rate Blood Pressure 127/59 L 118/72 O2 Saturation 69 L 95 94 If not protocol 15 6 : Oxygen Flow, liters/minute 12/09/23 12/09/23 12/09/23 00:04 00:15 00:29 Temperature Heart Rate 94 91 90 Respiratory 22 22 22 Rate Blood Pressure 122/63 122/71 111/68 O2 Saturation 95 93 92 If not protocol 6 6 6 : Oxygen Flow, liters/minute 12/09/23 12/09/23 12/09/23 00:44 00:59 01:15 Temperature Heart Rate 95 90 88 Respiratory 24 23 20 Rate Blood Pressure 125/71 116/69 112/68 O2 Saturation 91 L 91 L 91 L If not protocol 6 6 6 : Oxygen Flow, liters/minute 12/09/23 12/09/23 12/09/23 01:25 01:28 01:45 Temperature Heart Rate 88 88 93 Respiratory 32 H 22 22 Rate Blood Pressure 124/73 120/66 O2 Saturation 96 90 L If not protocol 6 6 : Oxygen Flow, liters/minute 12/09/23 12/09/23 12/09/23 02:00 02:14 02:30 Temperature Heart Rate 92 91 87 Respiratory 20 20 16 Rate Blood Pressure 106/74 117/69 115/67 O2 Saturation 90 L 89 L 88 L If not protocol 6 6 6 : Oxygen Flow, liters/minute 12/09/23 12/09/23 12/09/23 03:00 03:30 03:45 Temperature Heart Rate 83 82 82 Respiratory 18 20 16 Rate Blood Pressure 124/73 113/68 113/68 O2 Saturation 92 92 91 L If not protocol 6 6 : Oxygen Flow, liters/minute 12/09/23 12/09/23 12/09/23 04:00 04:30 05:00 Temperature Heart Rate 81 84 80 Respiratory 18 20 16 Rate Blood Pressure 107/66 117/71 116/73 O2 Saturation 93 95 93 If not protocol 6 6 6 : Oxygen Flow, liters/minute 12/09/23 12/09/23 12/09/23 05:15 05:30 06:00 Temperature Heart Rate 76 78 74 Respiratory 16 14 14 Rate Blood Pressure 102/66 102/72 108/65 O2 Saturation 93 91 L 94 If not protocol 6 6 6 : Oxygen Flow, liters/minute 12/09/23 12/09/23 12/09/23 06:21 06:31 07:00 Temperature Heart Rate 78 79 75 Respiratory 24 18 18 Rate Blood Pressure 120/75 113/71 O2 Saturation 97 94 If not protocol 6 6 6 : Oxygen Flow, liters/minute 12/09/23 12/09/23 12/09/23 07:39 07:40 08:00 Temperature Heart Rate 75 Respiratory Rate Blood Pressure 116/67 O2 Saturation 87 L 88 L 95 If not protocol 3 5 : Oxygen Flow, liters/minute 12/09/23 12/09/23 08:09 09:00 Temperature Heart Rate 78 78 Respiratory 18 15 Rate Blood Pressure 121/77 O2 Saturation 94 If not protocol 5 : Oxygen Flow, liters/minute Oxygen O2 Source Nasal cannula Oxygen Flow Rate 15 - EKG (time done) No standard instances EKG releavant findings:: EKG personally interpreted by author of this note. Relevant findings are: Rate: Rate (enter#) (99) Rhythm: NSR, CHELO [place]: Normal Intervals: Normal CA QRS: Normal Ischemia: Normal ST segments Other comments: Other comments (significant artifact in multiple leads ) - Labs Labs: Laboratory Tests 12/08/23 12/08/23 12/08/23 23:46 23:46 23:46 WBC 13.4 H RBC 5.03 Hgb 13.9 Hct 43.3 MCV 86.1 MCH 27.6 MCHC 32.1 RDW 13.2 Plt Count 345 MPV 9.1 Neut # (Auto) 10.4 H Lymph # (Auto) 1.5 [place] # (Auto) 1.3 H Eos # (Auto) 0.1 Baso # (Auto) 0.0 Absolute Nucleated RBC 0.00 Nucleated RBC % 0.0 D-Dimer Sodium 138 Potassium 3.2 L Chloride 100 L Carbon Dioxide 31 Anion Gap 7.0 BUN 14 Creatinine 0.7 Estimated GFR (MDRD) 88 L Glucose 132 H Lactic Acid Calcium 9.4 Total Bilirubin 0.6 AST 21 ALT 14 Alkaline Phosphatase 87 Troponin I High Sens 45.0 H* B-Natriuretic Peptide Total Protein 7.3 Albumin 3.9 Globulin 3.4 Albumin/Globulin Ratio 1.1 Lipase < 10 L Nasal Adenovirus (PCR) Nasal B. parapertussis DNA (PCR) Nasal Coronavir 229E PCR Nasal Coronavir HKU1 PCR Nasal Coronavir NL63 PCR Nasal Coronavir OC43 PCR Nasal Enterovir/Rhinovir PCR Nasal Influenza B PCR Nasal Influenza A PCR Nasal Parainfluen 1 PCR Nasal Parainfluen 2 PCR Nasal Parainfluen 3 PCR Nasal Parainfluen 4 PCR Nasal RSV (PCR) Nasal B.pertussis DNA PCR Nasal C.pneumoniae (PCR) Mike Human Metapneumo PCR Nasal M.pneumoniae (PCR) Nasal SARS-CoV-2 (PCR) 12/08/23 12/08/23 12/08/23 23:46 23:46 23:46 WBC RBC Hgb Hct MCV MCH MCHC RDW Plt Count MPV Neut # (Auto) Lymph # (Auto) [place] # (Auto) Eos # (Auto) Baso # (Auto) Absolute Nucleated RBC Nucleated RBC % D-Dimer 365.1 H Sodium Potassium Chloride Carbon Dioxide Anion Gap BUN Creatinine Estimated GFR (MDRD) Glucose Lactic Acid 1.1 Calcium Total Bilirubin AST ALT Alkaline Phosphatase Troponin I High Sens B-Natriuretic Peptide Total Protein Albumin Globulin Albumin/Globulin Ratio Lipase Nasal Adenovirus (PCR) NOT DETECTED Nasal B. parapertussis DNA (PCR) NOT DETECTED Nasal Coronavir 229E PCR NOT DETECTED Nasal Coronavir HKU1 PCR NOT DETECTED Nasal Coronavir NL63 PCR NOT DETECTED Nasal Coronavir OC43 PCR NOT DETECTED Nasal Enterovir/Rhinovir PCR DETECTED A Nasal Influenza B PCR NOT DETECTED Nasal Influenza A PCR NOT DETECTED Nasal Parainfluen 1 PCR NOT DETECTED Nasal Parainfluen 2 PCR NOT DETECTED Nasal Parainfluen 3 PCR NOT DETECTED Nasal Parainfluen 4 PCR NOT DETECTED Nasal RSV (PCR) NOT DETECTED Nasal B.pertussis DNA PCR NOT DETECTED Nasal C.pneumoniae (PCR) NOT DETECTED Mike Human Metapneumo PCR NOT DETECTED Nasal M.pneumoniae (PCR) NOT DETECTED Nasal SARS-CoV-2 (PCR) NOT DETECTED 12/08/23 12/09/23 23:46 01:58 WBC RBC Hgb Hct MCV MCH MCHC RDW Plt Count MPV Neut # (Auto) Lymph # (Auto) [place] # (Auto) Eos # (Auto) Baso # (Auto) Absolute Nucleated RBC Nucleated RBC % D-Dimer Sodium Potassium Chloride Carbon Dioxide Anion Gap BUN Creatinine Estimated GFR (MDRD) Glucose Lactic Acid Calcium Total Bilirubin AST ALT Alkaline Phosphatase Troponin I High Sens 43.9 H* B-Natriuretic Peptide 178 H Total Protein Albumin Globulin Albumin/Globulin Ratio Lipase Nasal Adenovirus (PCR) Nasal B. parapertussis DNA (PCR) Nasal Coronavir 229E PCR Nasal Coronavir HKU1 PCR Nasal Coronavir NL63 PCR Nasal Coronavir OC43 PCR Nasal Enterovir/Rhinovir PCR Nasal Influenza B PCR Nasal Influenza A PCR Nasal Parainfluen 1 PCR Nasal Parainfluen 2 PCR Nasal Parainfluen 3 PCR Nasal Parainfluen 4 PCR Nasal RSV (PCR) Nasal B.pertussis DNA PCR Nasal C.pneumoniae (PCR) Mike Human Metapneumo PCR Nasal M.pneumoniae (PCR) Nasal SARS-CoV-2 (PCR) - Rads (name of study) CXR Relevant Findings:: Prelim report reviewed, See rad report CTA chest Relevant Findings:: Prelim report reviewed, See rad report PD Medical Decision Making - ED course Complexity details: reviewed results, re-evaluated patient, considered differential, d/w patient ED course: I discussed this case with the on-call [facility] [place] telehealth practitioner; he does not feel comfortable considering admission until a CTA of the chest been undertaken to investigate possible PE. Thus, I have ordered this test. The r esults are interpreted by the radiologist as "no CT evidence of pulmonary embolus". Also noted are groundglass opacities and bronchial wall thickening "consider atypical viral pneumonitis". Respiratory PCR panel is positive for enterovirus/rhinovirus. Note that when she first arrived, the triage nurse records pulse ox in the 60s; however, in discussing this with the triage nurse and she is not confident as to whether the reading is accurate. Nonetheless, by the time I evaluated the patient, she is on 6 L of nasal cannula oxygen with a pulse ox as recorded by the probe placed on the ear reading in the upper 80s to lower 90s range. She is given a DuoNeb followed by 2 albuterol nebs. She is also given 10 mg Decadron IV. On reexam, there is modest improvement in airflow but continues to have diffuse bilateral wheezing throughout expiratory phase. Attempts were made to wean the patient off of the oxygen, but both times this was tried, her pulse ox would rapidly decrease back down into the mid-80s with a good pleth. Thus, I have discussed the case with the hospitalist at [facility] and he agrees to admit this patient Departure - Departure Disposition: 66 [facility] DC/Xfer Clinical Impression: Asthma exacerbation Condition: Stable Forms: PCP List
[2023-12-08] MEDS ORDERED: ALBUTEROL NEB 2.5 MG/3 ML INH ONE (23:43)
[2023-12-08 23:53] LABS: BASOPHILS % (AUTO) 0.3 %; EOSINOPHILS # (AUTO) 0.1 10^3/uL (0.0-0.7); EOSINOPHILS % (AUTO) 0.4 %; HCT - HEMATOCRIT 43.3 % (37.0-47.0); HGB - HEMOGLOBIN 13.9 g/dL (12.0-16.0); LYMPHOCYTES # (AUTO) 1.5 10^3/uL (1.5-3.5); MEAN CORPUSCULAR HEMOGLOBIN 27.6 pg (27.0-31.0); MEAN CORPUSCULAR HGB CONC 32.1 g/dL (32.0-36.0); MEAN CORPUSCULAR VOLUME 86.1 fL (81.0-99.0); MEAN PLATELET VOLUME 9.1 fL (7.9-10.8); MONOCYTES # (AUTO) 1.3 10^3/uL (0.0-1.0); MONOCYTES % (AUTO) 9.9 %; NEUTROPHILS # (AUTO) 10.4 10^3/uL (1.5-6.6); NEUTROPHILS % (AUTO) 77.7 %; PLT - PLATELET COUNT 345 10^3/uL (130-450); RED BLOOD COUNT 5.03 10^6/uL (4.20-5.40); RED CELL DISTRIBUTION WIDTH 13.2 % (12.0-15.0); WHITE BLOOD COUNT 13.4 x10^3/uL (4.8-10.8)
[2023-12-08] MEDS: DEXAMETHASONE 10 MG/ML VIAL IVP STA (23:54)
[2023-12-08] MEDS: IPRATROPIUM/ALBUTEROL 3 ML NEB INH STA (23:55)
[2023-12-08] MEDS: SODIUM CHLORIDE 0.9% 1,000 ML IV STA (23:55)
[2023-12-09 00:44] LABS: ALBUMIN 3.9 g/dL (3.2-5.5); ALBUMIN/GLOBULIN RATIO 1.1 (1.0-2.2); ALKALINE PHOSPHATASE 87 IU/L (42-121); ALT ALANINE AMINOTRANSFERASE 14 IU/L (10-60); AST ASPARTATE AMINOTRANSFERASE 21 IU/L (10-42); BILIRUBIN,TOTAL 0.6 mg/dL (0.2-1.0); BUN - BLOOD UREA NITROGEN 14 mg/dL (6-20); CALCIUM 9.4 mg/dL (8.5-10.3); CARBON DIOXIDE - CO2 31 mmol/L (21-32); CHLORIDE 100 mmol/L (101-111); CREATININE 0.7 mg/dL (0.6-1.3); GFR - MDRD 88 (>89); GLUCOSE 132 mg/dL (74-104); LIPASE < 10 U/L (11-82); POTASSIUM 3.2 mmol/L (3.5-4.5); SODIUM 138 mmol/L (135-145); TOTAL PROTEIN 7.3 g/dL (6.4-8.9)
[2023-12-09] MEDS: ALBUTEROL NEB 2.5 MG/3 ML INH STA ×3 (01:25→08:08)
[2023-12-09 01:28] LABS: B. PARAPERTUSSIS- RESP PCR PAN NOT DETECTED; B. PERTUSSIS- RESP PCR PANEL NOT DETECTED; C. PNEUMONIAE- RESP PCR PANEL NOT DETECTED; CORONAVIRUS 229E-RESP PCR NOT DETECTED; CORONAVIRUS HKU1-RESP PCR NOT DETECTED; CORONAVIRUS NL63-RESP PCR NOT DETECTED; CORONAVIRUS OC43-RESP PCR NOT DETECTED; HUMAN METAPNEUMOVIRUS NOT DETECTED; INFLUENZA A- RESP PCR PANEL NOT DETECTED; INFLUENZA B - RESP PCR PANEL NOT DETECTED; M. PNEUMONIAE- RESP PCR PANEL NOT DETECTED; PARAINFLUENZA VIRUS 1 NOT DETECTED; PARAINFLUENZA VIRUS 2 NOT DETECTED; PARAINFLUENZA VIRUS 3 NOT DETECTED; PARAINFLUENZA VIRUS 4 NOT DETECTED; RHINOVIRUS/ENTEROVIRUS DETECTED; RSV- RESP PCR PANEL NOT DETECTED; SARS-CoV-2 -RESP PCR PANEL NOT DETECTED
--- NOTE | 2023-12-09 02:01 | XRAY Report ---
PROCEDURE: Chest 1V INDICATIONS: dyspnea TECHNIQUE: One view of the chest was acquired. COMPARISON: None. FINDINGS: Surgical changes and devices: None. Lungs and pleura: No pleural effusions or pneumothorax. Lungs are clear. Mediastinum: Mediastinal contours appear normal. Heart size is normal. Bones and chest wall: No suspicious bony lesions. Overlying soft tissues appear unremarkable. IMPRESSION: No acute cardiopulmonary process. Reviewed by: Yaron Espino MD on 12/09/2023 1:59 AM PDT Approved by: Yaron Espino MD on 12/09/2023 1:59 AM PDT Station ID: [id number]
[2023-12-09] MEDS ORDERED: iohexoL-300 100 ML VIAL ONE (04:11)
[2023-12-09] MEDS: iohexoL-300 100 ML VIAL IVP ONE (04:41)
--- NOTE | 2023-12-09 08:00 | CT Report ---
PROCEDURE: Angio Chest INDICATIONS: hypoxia CONTRAST: IV 100 ML OMNI 300 TECHNIQUE: After the administration of intravenous contrast, 2 mm axial images were acquired from the pulmonary apices to the posterior costophrenic angles during the arterial phase. In addition, 1 mm lung kernel and 5 mm soft tissue kernel reconstructions were performed. 3-dimensional coronal oblique maximum int ensity projection (MIP) reformats, 8 mm axial MIP, and 5 mm coronal and sagittal MPR reformats were t hen performed through the thorax. For radiation dose reduction, the following was used: automated exp osure control, adjustment of mA and/or kV according to patient size. COMPARISON: Correlation is made with the accompanying imaging. FINDINGS: Image quality: There is streak artifact seen through the level of the shoulders. Large vessels: No filling defects within the opacified pulmonary arteries, accounting for motion and contrast timing. No evidence of acute aortic syndrome or aortic aneurysm. Lungs and pleura: Mild patchy infiltrate can be seen involving both pulmonary apices. Generalized ill -defined nodular opacities can be seen throughout the lungs. No pleural effusions. No pneumothorax. No suspicious pulmonary nodules which require follow up. Mediastinum: Heart size is normal. No pericardial effusion. No large vessel abnormality. General is p rominence of mediastinal and perihilar lymph nodes can be seen. Chest wall and lower neck: Thyroid is unremarkable. No axillary or supraclavicular adenopathy by size . Bones: No aggressive osseous abnormality. There is accentuated thoracic kyphosis. Upper Abdomen: Unremarkable. IMPRESSION: No pulmonary embolus. Abnormal nodular opacities can be seen throughout the lungs. Diffuse viral infection is suspected. In flammatory change is also possible. Metastatic disease is considered to be much less likely. Mild areas of consolidation can be seen involving the lung apices. Generalized prominence of the mediastinal and perihilar lymph nodes are seen, likely reactive. Note: No significant discrepancy from the preliminary report. Reviewed by: Lawrence Sutherland MD on 12/09/2023 6:59 AM HERVE Approved by: Lawrence Sutherland MD on 12/09/2023 6:59 AM HERVE Station ID: [id number]
[2023-12-09] MEDS ORDERED: ALBUTEROL NEB 2.5 MG/3 ML INH PRN (09:57)
--- NOTE | 2023-12-09 10:45 | HISTORY & PHYSICAL EXAMINATION ---
Chief Complaint - Chief Complaint Chief Complaint: SOB History of Present Illness - Admitted From Admitted From:: Home - History Obtained From History obtained from: The pt - History of Present Illness HPI Comment/Other: This is a 53 F with history of asthma and polysubstance abuse including IV drug abuse came with SOB. The pt reports that she has been having SOB for > 3 days and it has been getting worse. She has productive cough with yellow sputum and has had subjective fever. She denies any sick contact, N/V or diarrhea. Her PO intake has been okay. She used her inhaler at home and that helped her breathing most. Due to the worsening SOB, she decided to come to ED. ED course: Vital signs showed HR 113, RR 28 and O2 sat 80's on RA which improved to 94% on 6 liters. Work up revealed K 3.2, glucose 132, Trop 45 and then 43.9, BNP 178, D dimer 365.1, WBC 13.4 and positive Rhinovirus. CXR was unremarkable. CTA chest showed diffuse viral infection but no PE. The pt received 1 liter of NS, duoneb, albuterol neb x3 and decadron 10mg IV. History - Past Medical History Cardiovascular: reports: None Respiratory: reports: Asthma Neuro: reports: None Endocrine/Autoimmune: reports: None GI: reports: None EMERGENCY VETERINARY ASSISTANT: reports: None : reports: None HEENT: reports: None Psych: reports: None Musculoskeletal: reports: None Derm: reports: None MRSA Hx?: Yes Other Past Medical History: overactive bladder. eczema - Past Surgical History /EMERGENCY VETERINARY ASSISTANT: reports: section - Family & Social History Family History: Mother: , Cancer ("Cancer of abdomen" ), Father: Alive and Well (Dx: Hep C) Living arrangement: At home Living Situation: Other (Boyfriend) Social History Notes: Pt has a daughter steven that lives in [place]. 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 Pt notes verbally her power of seam sewer is Zbigniew, her boyfriend, whom she lives with at [facility]. - Substance History Use: Uses substance without health or social issues: Cocaine, Opioid (Heroin, 1- 2 times a day ) Abuse: Recurrent use of substance despite neg consequences: Cocaine (Smokes crack even with asthma) Dependence: Experiences withdrawal or developed tolerances: Tobacco - POLST Patient has POLST: No POLST Status: Full Code Meds/Allgy - Home Medications Home Medications: Ambulatory Orders Medication Instructions Recorded Confirmed No Known Home Medications 12/08/23 12/08/23 - Allergies Allergies/Adverse Reactions: Allergies Allergy/AdvReac Type Severity Reaction Status Date / Time No Known Drug Allergies Allergy Verified 12/08/23 23:44 Review of Systems - All Other Systems All Other Systems: reports: Reviewed and negative Prior Level of Functionality: Independent Exam - Vital Signs Reviewed Vital Signs: Yes Vital Signs: Vital Signs x48h Pulse Resp BP Pulse Ox O2 Flow Rate 12/09/23 09:00 78 15 121/77 94 5 12/09/23 08:09 78 18 12/09/23 08:00 75 116/67 95 5 12/09/23 07:40 88 L 3 12/09/23 07:39 87 L 12/09/23 07:00 75 18 113/71 94 6 12/09/23 06:31 79 18 120/75 97 6 12/09/23 06:21 78 24 6 12/09/23 06:00 74 14 108/65 94 6 12/09/23 05:30 78 14 102/72 91 L 6 12/09/23 05:15 76 16 102/66 93 6 12/09/23 05:00 80 16 116/73 93 6 12/09/23 04:30 84 20 117/71 95 6 12/09/23 04:00 81 18 107/66 93 6 12/09/23 03:45 82 16 113/68 91 L 6 12/09/23 03:30 82 20 113/68 92 6 12/09/23 03:00 83 18 124/73 92 - Physical Exam General Appearance: positive: Mild distress Eyes Bilateral: positive: Normal inspection, EOMI ENT: positive: ENT inspection nml, Dry mucous membranes Neck: positive: Nml inspection, No JVD Respiratory: positive: Chest non-tender, Wheezes Cardiovascular: positive: Regular rate & rhythm, No murmur Abdomen: positive: Non-tender, Nml bowel sounds, No distention Skin: positive: Color nml, No rash, Warm, Dry Extremities: positive: Non-tender, Full ROM, Nml appearance Neurologic/Psychiatric: positive: Oriented x3, Mood/affect nml Sepsis Event Note (H) - Evaluation Current Stage of Sepsis: Sepsis Possible source of Sepsis: positive: Pulmonary (Viral) - Sepsis Criteria Sepsis Criteria: Recorded Heart Rate greater than 90 bpm, Recorded Respiratory Rate greater than 20, Respiratory: Increasing oxygen requirements, WBC count greater than 12,000 or less than 4000 Conclusion/Plan - Problem List (1) Asthma exacerbation Conclusion/Plan: From Rhinovirus infection. Also smoking 1 PPD and crack wouldn't help her asth ma. Solu-medrol 40mg Q6hrs and duoneb Q6h. O2 support. Qualifiers: Asthma severity: unspecified severity Asthma persistence: persistent Qualified Code(s): J45.901 - Unspecified asthma with (acute) exacerbation (2) Acute hypoxemic respiratory failure Conclusion/Plan: From Asthma and rhinovirus. O2 support. (3) Sepsis Conclusion/Plan: Pulmonary viral infection is the source. Will check procalcitonin and will consider abx if it is elevated. Qualifiers: Sepsis type: sepsis due to unspecified organism Severe sepsis acute organ dysfunction type: acute respiratory failure Acute respiratory failure type: with hypoxia Severe sepsis shock status: without septic shock (4) Type 2 CT (myocardial infarction) Conclusion/Plan: From hypoxemia and acute asthma. No evidence of ACS. (5) Rhinovirus infection Conclusion/Plan: Supportive care. (6) Hypokalemia Conclusion/Plan: Replacement. - Lab Results Fish Bones: 12/08/23 23:46 12/08/23 23:46 - Diagnostic Imaging Results Diagnostic Imaging Results: positive: Final report reviewed Diagnostic Imaging Results Comments: CTA chest showed diffuse viral infection. - EKG Results EKG Interpreted Independently: Yes EKG Comparison: Old EKG unavailable EKG Findings: NSR Core Measures - Anticipated LOS I expect patient to be DC'd or transferred within 96 hours.: Yes - DVT/VTE - Prophylaxis VTE/DVT Device ordered at admit?: Yes VTE/DVT Prophylaxis med ordered at admit?: Yes
[2023-12-09] MEDS: ENOXAPARIN 40 MG/0.4 ML SYRINGE SUBQ SCH (11:21)
[2023-12-09] MEDS: methylPREDNISolone SUCCINATE 40 MG/ML VIAL IVP SCH (11:22)
[2023-12-09] MEDS: POTASSIUM CHLORIDE 10 MEQ CAPSULE PO ONE (11:22)
[2023-12-09] MEDS: IPRATROPIUM/ALBUTEROL 3 ML NEB INH SCH (11:23)
--- NOTE | 2023-12-09 11:47 | PHARMACY PROGRESS NOTE ---
- Best Possible Medication History Admit Date and Time: 12/09/23 0956 Processed by: Nursing Medications reviewed in ED?: Yes As the person ultimately responsible for medication therapy, providers are able to order a medication from an existing home medication list in [facility] via the "Reconcile Routine" prior to Confirmation of that medication by customer support professional. Such practice is discouraged except when the physician, in their clinical judgment, deems that a medical need exists for a medication without regard to previous use.
[2023-12-09] MEDS: NICOTINE 21 MG PATCH TOP SCH (13:01)
[2023-12-09] MEDS: SODIUM CHLORIDE FLUSH 0.9% 10 ML SYRINGE IVP SCH (16:00)
[2023-12-09] MEDS: guaiFENesin 600 MG TABLET PO SCH (20:34)
[2023-12-10] MEDS: ACETAMINOPHEN 325 MG TABLET PO PRN (08:58)
[2023-12-10] MEDS: hydrOXYzine PAMOATE 25 MG CAPSULE PO PRN (10:07)
--- NOTE | 2023-12-10 12:02 | PROVIDER PROGRESS NOTE ---
Subjective - Prog Note Date Prog Note Date: 12/10/23 Prog Note Time: 12:00 - Subjective Pt reports feeling: No change Subjective: The pt reports that she is afraid of doing any activities due to her SOB. She is also anxious. her breathing is better when she doesn't move. No other related symptoms. No other modifying factors. Objective - Vital Signs/Intake & Output Reviewed Vital Signs: Yes Vital Signs: Vital Signs x48h Temp Pulse Pulse Resp BP Pulse Ox O2 Flow Rate 12/10/23 08:02 5 12/10/23 08:00 36.7 C 83 20 127/76 96 5 12/10/23 06:04 94 28 H 5 Intake & Output: Intake & Output 12/07/23 12/08/23 12/09/23 12/10/23 23:59 23:59 23:59 23:59 Intake Total 2101 Balance 2101 - Objective General Appearance: positive: Alert, Mild distress, Anxious Eyes Bilateral: positive: Normal inspection, EOMI ENT: positive: Dry mucous membranes Neck: positive: Nml inspection, No JVD Respiratory: positive: Chest non-tender, Wheezes Cardiovascular: positive: Regular rate & rhythm, No murmur Abdomen: positive: Non-tender, Nml bowel sounds, No distention Skin: positive: Color nml, No rash, Warm, Dry Extremities: positive: Non-tender, Full ROM, Nml appearance, No pedal edema Neurologic/Psychiatric: positive: Oriented x3, Mood/affect nml - Lab Results Fish Bones: 12/08/23 23:46 12/08/23 23:46 ABX Reporting Has patient been on IV antibiotics over the past 48 hours?: No Sepsis Event Note (H) - Evaluation Current Stage of Sepsis: Sepsis Possible source of Sepsis: positive: Pulmonary (Viral) Confirmed Source and Organism (if known) of Sepsis: Rhinovirus - Sepsis Criteria Sepsis Criteria: Recorded Heart Rate greater than 90 bpm, Recorded Respiratory Rate greater than 20, Respiratory: Increasing oxygen requirements, WBC count greater than 12,000 or less than 4000 Assessment/Plan - Problem List (1) Asthma exacerbation Impression: Imropving. Continue with O2 support, steroid and duonebs. Procalcitonin came back low so will not put her on abx. Qualifiers: Asthma severity: unspecified severity Asthma persistence: persistent Qualified Code(s): J45.901 - Unspecified asthma with (acute) exacerbation (2) Acute hypoxemic respiratory failure Impression: O2 support and treat asthma. (3) Sepsis Impression: from viral infection. Parameters are improving. Qualifiers: Sepsis type: sepsis due to unspecified organism Severe sepsis acute organ dysfunction type: acute respiratory failure Acute respiratory failure type: with hypoxia Severe sepsis shock status: without septic shock (4) Type 2 NH (myocardial infarction) Impression: No evidence of ACS. From asthma and hypoxemia. (5) Rhinovirus infection Impression: Supportive care. (6) Hypokalemia Impression: Replaced and will check BMP in am. (7) Opioid withdrawal Impression: She uses heroin, crack/cocaine and fentanyl. Will start methadone 5mg TID. (8) Anxiety Impression: Hydroxyzine prn
[2023-12-10] MEDS: PRENATAL VITAMIN TABLET PO SCH (14:13)
[2023-12-10] MEDS: ASCORBIC ACID 500 MG TABLET PO SCH (14:13)
[2023-12-10] MEDS: METHADONE 5 MG TABLET PO SCH (14:13)
--- NOTE | 2023-12-11 07:01 | PROVIDER PROGRESS NOTE ---
Assessment/Plan - Problem List (1) Asthma exacerbation Qualifiers: Asthma severity: severe Asthma persistence: persistent Qualified Code(s): J45.51 - Severe persistent asthma with (acute) exacerbation Assessment/Plan: Asthma exacerbation most likely secondary to rhinovirus infection Continue Solu-Medrol and bronchodilator therapy. Patient's clinical condition has worsened and she will be transferred to the intensive care unit for closer hemodynamic monitoring. Treatment will be initiated with bilevel positive airway pressure therapy. Bilevel settings: IPAP EPAP 10/5 cmH2O with a spontaneous rate and FiO2 30%. Wean oxygen as tolerated. Patient is critically ill and requiring artificial life support with bilevel positive airway pressure therapy. (2) Acute hypoxemic respiratory failure Conclusion/Plan: From Asthma and rhinovirus. O2 support. Patient transferred to the intensive care unit for initiation of bilevel therapy. (3) Sepsis Conclusion/Plan: Pulmonary viral infection is the source. Will check procalcitonin and will consider abx if it is elevated. Qualifiers: Sepsis type: sepsis due to unspecified organism Severe sepsis acute organ dysfunction type: acute respiratory failure Acute respiratory failure type: with hypoxia Severe sepsis shock status: without septic shock Continue to monitor hemodynamics. (4) Type 2 [place] (myocardial infarction) Conclusion/Plan: From hypoxemia and acute asthma. No evidence of ACS. (5) Rhinovirus infection Conclusion/Plan: Supportive care. (6) Hypokalemia Conclusion/Plan: Recheck potassium. I spent a total 35 minutes at the patient's bedside, evaluating her laboratory studies and writing orders to transfer her to the intensive care unit. - Current Meds Current Meds: Current Medications Generic Name Dose Route Start Last Admin Trade Name Freq PRN Reason Stop Dose Admin Acetaminophen 650 mg 12/09/23 09:57 12/11/23 06:51 Acetaminophen 325 Mg Tablet PO 650 mg Q4HR PRN Administration Pain 1 to 4, or Fever Albuterol/Ipratropium 3 ml 12/09/23 11:00 12/11/23 06:40 Ipratropium/Albuterol 3 Ml Neb INH 3 ml RTQID ALEXANDRA Administration Ascorbic Acid 500 mg 12/10/23 12:00 12/10/23 14:13 Ascorbic Acid 500 Mg Tablet PO 500 mg DAILY ALEXANDRA Administration Enoxaparin Sodium 40 mg 12/09/23 10:00 12/10/23 08:17 Enoxaparin 40 Mg/0.4 Ml Syringe SUBQ 40 mg DAILY ALEXANDRA Administration Guaifenesin 600 mg 12/09/23 21:00 12/10/23 21:15 Guaifenesin 600 Mg Tablet PO 600 mg BID ALEXANDRA Administration Hydroxyzine Pamoate 25 mg 12/10/23 09:11 12/11/23 03:05 Hydroxyzine Pamoate 25 Mg Capsule PO 25 mg Q6H PRN Administration Anxiety Methadone HCl 5 mg 12/10/23 14:00 12/11/23 06:19 Methadone 5 Mg Tablet PO 5 mg TID ALEXANDRA Administration Methylprednisolone 40 mg 12/09/23 10:00 12/11/23 04:04 Methylprednisolone Succinate 40 Mg/Ml Vial IVP 40 mg Q6H ALEXANDRA Administration Nicotine 1 patch 12/09/23 12:00 12/10/23 08:17 Nicotine 21 Mg Patch TOP 1 patch DAILY ALEXANDRA Administration Multivit/Folic Acid/Iron 1 tab 12/10/23 12:00 12/10/23 14:13 Vitamin Tablet PO 1 tab DAILYWM ALEXANDRA Administration Sodium Chloride 10 ml 12/09/23 17:00 12/11/23 04:04 Sodium Chloride Flush 0.9% 10 Ml Syringe IVP 10 ml 0100,0900,1700 ALEXANDRA Administration - Lab Result Fish Bone Diagrams: 12/08/23 23:46 12/11/23 16:05 - Additional Planning My Orders: My Active Orders 12/11/23 06:58 Admit \ Transfer \ Status [RC] .ONCE BIPAP/CPAP - RT [RC] Q2H Subjective - Subjective Patient Reports: Other (Alert. Patient having difficulty speaking because of shortness of breath. She reports her breathing has worsened. She denies chest pain, abdominal pain, fever and chills. She has no other complaints at this time.) Objective Vital Signs: Vital Signs - 24 hr 12/10/23 12/10/23 12/10/23 07:05 08:00 08:02 Temperature 36.7 C Heart Rate Heart Rate [ 83 Brachial] Respiratory 20 Rate Blood Pressure 127/76 [Left Brachial artery] Blood Pressure [Right Brachial artery] O2 Saturation 96 If not protocol 5 5 5 : Oxygen Flow, liters/minute 12/10/23 12/10/23 12/10/23 11:00 15:56 19:04 Temperature 37.0 C Heart Rate 82 88 Heart Rate [ 99 Brachial] Respiratory 20 16 20 Rate Blood Pressure 142/76 H [Left Brachial artery] Blood Pressure [Right Brachial artery] O2 Saturation 92 If not protocol 4 4 : Oxygen Flow, liters/minute 12/11/23 12/11/23 00:35 06:40 Temperature 36.2 C L Heart Rate 86 Heart Rate [ 82 Brachial] Respiratory 20 26 H Rate Blood Pressure [Left Brachial artery] Blood Pressure 136/83 H [Right Brachial artery] O2 Saturation 95 If not protocol 4 5 : Oxygen Flow, liters/minute Oxygen O2 Source Oxymizer Oxygen Flow Rate 15 I&O (Last 24 Hrs): Intake and Output Totals x24h 12/09/23 12/10/23 12/11/23 23:59 23:59 23:59 Intake Total 2101 400 Balance 2101 400 General: Alert, Moderate distress HEENT: Atraumatic Neck: No JVD, No thyromegaly Neuro: Alert, Non Focal Cardiovascular: Other (Positive S1-S2 no extra heart sounds.) Respiratory: Other (Fair air exchange in all lung tellez positive expiratory wheezing diffusely no crackles.) Abdomen: Other (Soft positive bowel sounds nontender nondistended.) Extremities: No cyanosis, No edema Skin: No rashes - Results Results: Laboratory Results WBC 13.4 x10^3/uL (4.8-10.8) H 12/08/23 23:46 RBC 5.03 10^6/uL (4.20-5.40) 12/08/23 23:46 Hgb 13.9 g/dL (12.0-16.0) 12/08/23 23:46 Hct 43.3 % (37.0-47.0) 12/08/23 23:46 MCV 86.1 fL (81.0-99.0) 12/08/23 23:46 MCH 27.6 pg (27.0-31.0) 12/08/23 23:46 MCHC 32.1 g/dL (32.0-36.0) 12/08/23 23:46 RDW 13.2 % (12.0-15.0) 12/08/23 23:46 Plt Count 345 10^3/uL (130-450) 12/08/23 23:46 MPV 9.1 fL (7.9-10.8) 12/08/23 23:46 Neut # (Auto) 10.4 10^3/uL (1.5-6.6) H 12/08/23 23:46 Lymph # (Auto) 1.5 10^3/uL (1.5-3.5) 12/08/23 23:46 [place] # (Auto) 1.3 10^3/uL (0.0-1.0) H 12/08/23 23:46 Eos # (Auto) 0.1 10^3/uL (0.0-0.7) 12/08/23 23:46 Baso # (Auto) 0.0 10^3/uL (0.0-0.1) 12/08/23 23:46 Absolute Nucleated RBC 0.00 x10^3/uL 12/08/23 23:46 Nucleated RBC % 0.0 /100WBC 12/08/23 23:46 D-Dimer 365.1 ng/mL (200.0-255.0) H 12/08/23 23:46 Sodium 138 mmol/L (135-145) 12/08/23 23:46 Potassium 3.2 mmol/L (3.5-4.5) L 12/08/23 23:46 Chloride 100 mmol/L (101-111) L 12/08/23 23:46 Carbon Dioxide 31 mmol/L (21-32) 12/08/23 23:46 Anion Gap 7.0 (6-13) 12/08/23 23:46 BUN 14 mg/dL (6-20) 12/08/23 23:46 Creatinine 0.7 mg/dL (0.6-1.3) 12/08/23 23:46 Estimated GFR (MDRD) 88 (>89) L 12/08/23 23:46 Glucose 132 mg/dL (74-104) H 12/08/23 23:46 Lactic Acid 1.1 mmol/L (0.5-2.2) 12/08/23 23:46 Calcium 9.4 mg/dL (8.5-10.3) 12/08/23 23:46 Total Bilirubin 0.6 mg/dL (0.2-1.0) 12/08/23 23:46 AST 21 IU/L (10-42) 12/08/23 23:46 ALT 14 IU/L (10-60) 12/08/23 23:46 Alkaline Phosphatase 87 IU/L (42-121) 12/08/23 23:46 Troponin I High Sens 43.9 ng/L (2.3-14.8) H* 12/09/23 01:58 B-Natriuretic Peptide 178 pg/mL (5-100) H 12/08/23 23:46 Total Protein 7.3 g/dL (6.4-8.9) 12/08/23 23:46 Albumin 3.9 g/dL (3.2-5.5) 12/08/23 23:46 Globulin 3.4 g/dL (2.1-4.2) 12/08/23 23:46 Albumin/Globulin Ratio 1.1 (1.0-2.2) 12/08/23 23:46 Lipase < 10 U/L (11-82) L 12/08/23 23:46 Procalcitonin Immunoas 0.26 ng/mL (<0.5) 12/09/23 01:58 Nasal Adenovirus (PCR) NOT DETECTED 12/08/23 23:46 Nasal B. parapertussis DNA (PCR) NOT DETECTED 12/08/23 23:46 Nasal Coronavir 229E PCR NOT DETECTED 12/08/23 23:46 Nasal Coronavir HKU1 PCR NOT DETECTED 12/08/23 23:46 Nasal Coronavir NL63 PCR NOT DETECTED 12/08/23 23:46 Nasal Coronavir OC43 PCR NOT DETECTED 12/08/23 23:46 Nasal Enterovir/Rhinovir PCR DETECTED A 12/08/23 23:46 Nasal Influenza B PCR NOT DETECTED 12/08/23 23:46 Nasal Influenza A PCR NOT DETECTED 12/08/23 23:46 Nasal Parainfluen 1 PCR NOT DETECTED 12/08/23 23:46 Nasal Parainfluen 2 PCR NOT DETECTED 12/08/23 23:46 Nasal Parainfluen 3 PCR NOT DETECTED 12/08/23 23:46 Nasal Parainfluen 4 PCR NOT DETECTED 12/08/23 23:46 Nasal RSV (PCR) NOT DETECTED 12/08/23 23:46 Nasal B.pertussis DNA PCR NOT DETECTED 12/08/23 23:46 Nasal C.pneumoniae (PCR) NOT DETECTED 12/08/23 23:46 Mike Human Metapneumo PCR NOT DETECTED 12/08/23 23:46 Nasal M.pneumoniae (PCR) NOT DETECTED 12/08/23 23:46 Nasal SARS-CoV-2 (PCR) NOT DETECTED 12/08/23 23:46 Sepsis Event Note (H) - Evaluation Current Stage of Sepsis: Sepsis Possible source of Sepsis: positive: Pulmonary (Viral) - Sepsis Criteria Sepsis Criteria: Recorded Heart Rate greater than 90 bpm, Recorded Respiratory Rate greater than 20, Respiratory: Increasing oxygen requirements, WBC count greater than 12,000 or less than 4000
[2023-12-11] MEDS: LORazepam 2 MG/ML VIAL IVP PRN (08:13)
[2023-12-11 09:02] LABS: ABG BASE EXCESS 4.3 mmol/L (-2.0-3.0); ABG HCO3 29.5 mmol/L (22.0-26.0); ABG OXYGEN SATURATION 92 % (94-98); ABG PCO2 46 mmHg (34-45); ABG PH 7.43 (7.35-7.45); ABG PO2 65 mmHg (80-100); ABG TCO2 30.9 MMOL/L (21.0-29.0); ALLEN TEST POSITIVE
[2023-12-11 09:03] LABS: ABG RESPIRATORY RATE 12 b/min
[2023-12-11] MEDS: ONDANSETRON 4 MG/2 ML VIAL IVP PRN (09:34)
[2023-12-11] MEDS: ethyl alcohoL 62% SWAB AMPULE NAS SCH (13:35)
[2023-12-11 16:19] LABS: MAGNESIUM 2.2 mg/dL (1.7-2.3)
[2023-12-11 16:24] LABS: CALCIUM 9.6 mg/dL (8.5-10.3); POTASSIUM 4.8 mmol/L (3.5-4.5)
[2023-12-11 16:25] LABS: CREATININE 0.5 mg/dL (0.6-1.3); PHOSPHORUS 3.6 mg/dL (2.5-5.0)
[2023-12-11] MEDS: SODIUM CHLORIDE FLUSH 0.9% 10 ML SYRINGE IVP PRN (21:43)
[2023-12-12 07:11] LABS: ABG BASE EXCESS 6.6 mmol/L (-2.0-3.0); ABG HCO3 31.8 mmol/L (22.0-26.0); ABG PCO2 46 mmHg (34-45); ABG PH 7.46 (7.35-7.45); ABG PO2 53 mmHg (80-100); ABG TCO2 33.2 MMOL/L (21.0-29.0)
[2023-12-12 07:12] LABS: ABG RESPIRATORY RATE 12 b/min; ALLEN TEST POSITIVE
[2023-12-12 07:16] LABS: ABG OXYGEN SATURATION 87 % (94-98)
[2023-12-12] MEDS ORDERED: MORPHINE 2 MG/ML CARPUJECT ONE (07:43)
[2023-12-12] MEDS: MORPHINE 2 MG/ML CARPUJECT IVP PRN ×2 (07:58→11:29)
--- NOTE | 2023-12-12 09:48 | XRAY Report ---
PROCEDURE: Chest 1V INDICATIONS: tachypnea TECHNIQUE: One view of the chest was acquired. COMPARISON: CT chest 12/09/2023. FINDINGS: Surgical changes and devices: None. Lungs and pleura: No pleural effusions or pneumothorax. Lungs are clear. Mediastinum: Mediastinal contours appear normal. Heart size is normal. Bones and chest wall: No suspicious bony lesions. Subacute right-sided rib fractures are redemonstra jessica. Overlying soft tissues appear unremarkable. IMPRESSION: No acute cardiopulmonary process. Reviewed by: Zac Wright MD on 12/12/2023 9:46 AM PDT Approved by: Zac Wright MD on 12/12/2023 9:46 AM PDT Station ID: [id number]
[2023-12-12 10:10] LABS: CALCIUM 9.9 mg/dL (8.5-10.3); CREATININE 0.6 mg/dL (0.6-1.3); MAGNESIUM 2.2 mg/dL (1.7-2.3); PHOSPHORUS 3.3 mg/dL (2.5-5.0); POTASSIUM 4.1 mmol/L (3.5-4.5)
[2023-12-12 10:31] LABS: BASOPHILS % (AUTO) 0.4 %; HCT - HEMATOCRIT 49.6 % (37.0-47.0); HGB - HEMOGLOBIN 15.7 g/dL (12.0-16.0); LYMPHOCYTES % (AUTO) 5.5 %; MEAN CORPUSCULAR HEMOGLOBIN 26.8 pg (27.0-31.0); MEAN CORPUSCULAR HGB CONC 31.7 g/dL (32.0-36.0); MEAN CORPUSCULAR VOLUME 84.8 fL (81.0-99.0); MEAN PLATELET VOLUME 9.3 fL (7.9-10.8); MONOCYTES % (AUTO) 5.3 %; PLT - PLATELET COUNT 489 10^3/uL (130-450); RED BLOOD COUNT 5.85 10^6/uL (4.20-5.40); RED CELL DISTRIBUTION WIDTH 13.3 % (12.0-15.0); WHITE BLOOD COUNT 22.1 x10^3/uL (4.8-10.8)
[2023-12-12 10:37] LABS: ABNORMAL LYMPHS % (MANUAL) 0 %; BAND NEUTROPHILS % (MANUAL) 0 %
[2023-12-12 11:03] LABS: DIFFERENTIAL COMMENT MANUAL DIFFERENTIAL; LYMPHOCYTES # (MANUAL) 1.1 10^3/uL (1.5-3.5); LYMPHOCYTES % (MANUAL) 4 %; MONOCYTES # (MANUAL) 0.7 10^3/uL (0.0-1.0); NEUTROPHILS # (MANUAL) 20.3 10^3/uL (1.5-6.6); PLATELET ESTIMATE, MANUAL INCREASED (>450,000) (NORMAL); RBC MORPHOLOGY (MULTIPLE) 1+ ANISOCYTOSIS (NORMAL); REACTIVE LYMPHS % (MANUAL) 1 %
--- NOTE | 2023-12-12 11:25 | PROVIDER PROGRESS NOTE ---
Assessment/Plan - Problem List (1) Asthma exacerbation Qualifiers: Asthma severity: severe Asthma persistence: persistent Qualified Code(s): J45.51 - Severe persistent asthma with (acute) exacerbation Assessment/Plan: Asthma exacerbation most likely secondary to rhinovirus infection Continue Solu-Medrol and bronchodilator therapy. Continue DuoNeb every 4 times a day Patient has made no significant progress since her transfer to the intensive care unit. She remains critically ill and continues to require artificial life support with positive airway pressure therapy. Patient currently on continuous positive airway pressure therapy at 8 cm of water. Treatment will be initiated with bilevel positive airway pressure therapy.FiO2 is 40%. Wean oxygen as tolerated. Patient is critically ill and requiring artificial life support with positive airway pressure therapy. (2) Acute hypoxemic respiratory failure Conclusion/Plan: From Asthma and rhinovirus. O2 support. Patient transferred to the intensive care unit for initiation of Positive airway pressure therapy. Chest x-ray reveals some opacities in the right lower lobe that may be consistent with aspiration. Treatment has been initiated with Zosyn. Sedation with lorazepam and morphine as needed (3) Sepsis Conclusion/Plan: Pulmonary viral infection is the source.Prophylactic antibiotics have been initiated given the fact that patient's white blood cell count has increased to 22 K Qualifiers: Sepsis type: sepsis due to unspecified organism Severe sepsis acute organ dysfunction type: acute respiratory failure Acute respiratory failure type: with hypoxia Severe sepsis shock status: without septic shock Continue to monitor hemodynamics. (4) Type 2 DC (myocardial infarction) Conclusion/Plan: From hypoxemia and acute asthma. No evidence of ACS. (5) Rhinovirus infection Conclusion/Plan: Supportive care. (6) Hypokalemia Conclusion/Plan: Recheck potassium. I spent a total 42 minutes at the patient's bedside, evaluating her laboratory studies and writing orders for her car in the intensive care unit. - Current Meds Current Meds: Current Medications Generic Name Dose Route Start Last Admin Trade Name Freq PRN Reason Stop Dose Admin Acetaminophen 650 mg 12/09/23 09:57 12/12/23 07:52 Acetaminophen 325 Mg Tablet PO 650 mg Q4HR PRN Administration Pain 1 to 4, or Fever Albuterol/Ipratropium 3 ml 12/09/23 11:00 12/12/23 06:10 Ipratropium/Albuterol 3 Ml Neb INH 3 ml RTQID ALEXANDRA Administration Alcohol 1 amp 12/11/23 12:00 12/12/23 07:49 Ethyl Alcohol 62% Swab Ampule FE 1 amp BID ALEXANDRA Administration Ascorbic Acid 500 mg 12/10/23 12:00 12/12/23 07:52 Ascorbic Acid 500 Mg Tablet PO 500 mg DAILY ALEXANDRA Administration Enoxaparin Sodium 40 mg 12/09/23 10:00 12/12/23 07:51 Enoxaparin 40 Mg/0.4 Ml Syringe SUBQ 40 mg DAILY ALEXANDRA Administration Guaifenesin 600 mg 12/09/23 21:00 12/12/23 07:52 Guaifenesin 600 Mg Tablet PO 600 mg BID ALEXANDRA Administration Lorazepam 0.5 mg 12/11/23 07:46 12/12/23 10:09 Lorazepam 2 Mg/Ml Vial IVP 0.5 mg Q4H PRN Administration Anxiety Morphine Sulfate 2 mg 12/12/23 07:50 12/12/23 07:58 Morphine 2 Mg/Ml Carpuject IVP 2 mg Q2HR PRN Administration Shortness of Air/Wheezing Nicotine 1 patch 12/09/23 12:00 12/12/23 07:52 Nicotine 21 Mg Patch TOP 1 patch DAILY ALEXANDRA Administration Multivit/Folic Acid/Iron 1 tab 12/10/23 12:00 12/12/23 07:52 Vitamin Tablet PO 1 tab DAILYWM ALEXANDRA Administration Sodium Chloride 10 ml 12/09/23 09:57 12/12/23 06:35 Sodium Chloride Flush 0.9% 10 Ml Syringe IVP 10 ml PRN PRN Administration NEEDED PER PROVIDER ORDERS Sodium Chloride 10 ml 12/09/23 17:00 12/12/23 07:51 Sodium Chloride Flush 0.9% 10 Ml Syringe IVP 10 ml 0100,[id number],1700 ALEXANDRA Administration - Lab Result Fish Bone Diagrams: 12/12/23 10:24 12/12/23 09:41 - Additional Planning My Orders: My Active Orders 12/11/23 12:00 ethyl alcohoL 62% swab [NoZin] 1 amp FE BID 12/12/23 07:50 Morphine Inj (Carpuject) [Morphine (Carpuject)] 2 mg IVP Q2HR PRN 12/12/23 11:22 Morphine Inj (Carpuject) [Morphine (Carpuject)] 2 mg IVP Q2HR PRN 12/12/23 12:00 Piperacillin/Tazobactam [Zosyn] 3.375 gm Sodium Chloride 0.9% Minibag [Normal Saline 0.9% Minibag] 100 ml IV Q6H methylPREDNISolone SUCCINATE [SOLU-Medrol (40MG VIAL)] 80 mg IVP Q8H 12/13/23 09:00 Methadone [Methadone Hcl] 5 mg PO DAILY Subjective - Subjective Patient Reports: Other (Alert. Continues to complain of significant shortness of breath. Patient continues to require artificial life support with bilevel positive airway pressure therapy.) Objective Vital Signs: Vital Signs - 24 hr 12/11/23 12/11/23 12/11/23 12:00 13:00 13:31 Temperature 36.7 C Heart Rate 96 Heart Rate [ 71 102 H Brachial] Heart Rate [ Monitoring electrodes] Respiratory 28 H 24 Rate Blood Pressure 160/95 H 144/89 H [Left Brachial artery] Blood Pressure [Right Brachial artery] O2 Saturation 95 92 If not protocol 6 : Oxygen Flow, liters/minute 12/11/23 12/11/23 12/11/23 14:00 15:00 15:07 Temperature Heart Rate 89 Heart Rate [ 96 Brachial] Heart Rate [ 92 Monitoring electrodes] Respiratory 27 H 29 H 25 H Rate Blood Pressure 151/97 H [Left Brachial artery] Blood Pressure 140/84 H [Right Brachial artery] O2 Saturation 94 94 If not protocol : Oxygen Flow, liters/minute 12/11/23 12/11/23 12/11/23 16:00 17:00 17:36 Temperature Heart Rate 91 Heart Rate [ 80 Brachial] Heart Rate [ 93 Monitoring electrodes] Respiratory 31 H 18 24 Rate Blood Pressure [Left Brachial artery] Blood Pressure 153/97 H 158/98 H [Right Brachial artery] O2 Saturation 92 92 If not protocol : Oxygen Flow, liters/minute 12/11/23 12/11/23 12/11/23 18:00 19:00 19:30 Temperature Heart Rate 93 Heart Rate [ 105 H Brachial] Heart Rate [ 82 Monitoring electrodes] Respiratory 29 H 27 H Rate Blood Pressure 170/103 H [Left Brachial artery] Blood Pressure 156/97 H [Right Brachial artery] O2 Saturation 93 92 If not protocol : Oxygen Flow, liters/minute 12/11/23 12/11/23 12/11/23 20:00 21:00 22:00 Temperature 36.3 C L Heart Rate Heart Rate [ Brachial] Heart Rate [ 84 101 H 85 Monitoring electrodes] Respiratory 29 H 25 H 30 H Rate Blood Pressure 158/89 H [Left Brachial artery] Blood Pressure 144/95 H 155/98 H [Right Brachial artery] O2 Saturation 94 94 93 If not protocol : Oxygen Flow, liters/minute 12/11/23 12/11/23 12/12/23 22:30 23:00 00:00 Temperature 37.1 C Heart Rate 78 89 Heart Rate [ Brachial] Heart Rate [ 85 87 Monitoring electrodes] Respiratory 30 H 32 H Rate Blood Pressure 157/91 H 150/88 H [Left Brachial artery] Blood Pressure [Right Brachial artery] O2 Saturation 93 93 If not protocol : Oxygen Flow, liters/minute 12/12/23 12/12/23 12/12/23 01:00 02:00 02:40 Temperature Heart Rate 88 Heart Rate [ Brachial] Heart Rate [ 92 86 Monitoring electrodes] Respiratory 29 H 20 Rate Blood Pressure 154/100 H 141/45 H [Left Brachial artery] Blood Pressure [Right Brachial artery] O2 Saturation 93 94 If not protocol : Oxygen Flow, liters/minute 12/12/23 12/12/23 12/12/23 03:00 04:00 05:00 Temperature Heart Rate Heart Rate [ Brachial] Heart Rate [ 91 85 90 Monitoring electrodes] Respiratory 37 H 35 H 38 H Rate Blood Pressure 162/96 H 162/94 H 158/99 H [Left Brachial artery] Blood Pressure [Right Brachial artery] O2 Saturation 95 94 98 If not protocol : Oxygen Flow, liters/minute 12/12/23 12/12/23 12/12/23 06:00 06:10 06:41 Temperature Heart Rate 96 Heart Rate [ Brachial] Heart Rate [ 96 Monitoring electrodes] Respiratory 16 49 H Rate Blood Pressure 165/98 H [Left Brachial artery] Blood Pressure [Right Brachial artery] O2 Saturation 95 If not protocol 6 : Oxygen Flow, liters/minute 12/12/23 12/12/23 12/12/23 07:00 07:45 08:00 Temperature Heart Rate Heart Rate [ Brachial] Heart Rate [ 106 H 86 Monitoring electrodes] Respiratory 39 H 39 H Rate Blood Pressure 169/99 H 154/99 H [Left Brachial artery] Blood Pressure [Right Brachial artery] O2 Saturation 92 94 If not protocol 50 50 : Oxygen Flow, liters/minute 12/12/23 12/12/23 12/12/23 09:00 10:00 10:11 Temperature Heart Rate 83 Heart Rate [ Brachial] Heart Rate [ 76 97 Monitoring electrodes] Respiratory 30 H 45 H Rate Blood Pressure 143/85 H 157/83 H [Left Brachial artery] Blood Pressure [Right Brachial artery] O2 Saturation 95 96 If not protocol 50 50 : Oxygen Flow, liters/minute 12/12/23 12/12/23 10:15 11:00 Temperature 37.7 C Heart Rate Heart Rate [ Brachial] Heart Rate [ 81 Monitoring electrodes] Respiratory 33 H Rate Blood Pressure [Left Brachial artery] Blood Pressure 154/90 H [Right Brachial artery] O2 Saturation 93 If not protocol : Oxygen Flow, liters/minute Oxygen O2 Source BIPAP Oxygen Flow Rate 15 I&O (Last 24 Hrs): Intake and Output Totals x24h 12/10/23 12/11/23 12/12/23 23:59 23:59 23:59 Intake Total 400 757 450 Output Total 400 400 Balance 400 357 50 General: Alert, Moderate distress HEENT: Atraumatic Neck: No JVD, No thyromegaly Neuro: Alert, Non Focal Cardiovascular: Other Respiratory: Other (Fair air exchange in all lung tellez. Positive diffuse wheezing. No crackles.) Abdomen: Other (Positive S1-S2 no extra heart sounds.) Extremities: No cyanosis, No edema Skin: No rashes - Results Results: Laboratory Results WBC 22.1 x10^3/uL (4.8-10.8) H 12/12/23 10:24 RBC 5.85 10^6/uL (4.20-5.40) H 12/12/23 10:24 Hgb 15.7 g/dL (12.0-16.0) 12/12/23 10:24 Hct 49.6 % (37.0-47.0) H 12/12/23 10:24 MCV 84.8 fL (81.0-99.0) 12/12/23 10:24 MCH 26.8 pg (27.0-31.0) L 12/12/23 10:24 MCHC 31.7 g/dL (32.0-36.0) L 12/12/23 10:24 RDW 13.3 % (12.0-15.0) 05/01/24 10:24 Plt Count 489 10^3/uL (130-450) H 12/12/23 10:24 MPV 9.3 fL (7.9-10.8) 12/12/23 10:24 Neut # (Auto) Not Reportable 12/12/23 10:24 Lymph # (Auto) Not Reportable 12/12/23 10:24 [place] # (Auto) Not Reportable 12/12/23 10:24 Eos # (Auto) Not Reportable 12/12/23 10:24 Baso # (Auto) Not Reportable 12/12/23 10:24 Absolute Nucleated RBC Not Reportable 12/12/23 10:24 Total Counted 100 12/12/23 10:24 Band Neuts % (Manual) 0 % (0-10) 12/12/23 10:24 Reactive Lymphs % (Man) 1 % 12/12/23 10:24 Abnorm Lymph % (Manual) 0 % 12/12/23 10:24 Nucleated RBC % Not Reportable 12/12/23 10:24 Neutrophils # (Manual) 20.3 10^3/uL (1.5-6.6) H 12/12/23 10:24 Lymphocytes # (Manual) 1.1 10^3/uL (1.5-3.5) L 12/12/23 10:24 Monocytes # (Manual) 0.7 10^3/uL (0.0-1.0) 12/12/23 10:24 Eosinophils # (Manual) 0.0 10^3/uL (0-0.7) 12/12/23 10:24 Basophils # (Manual) 0.0 10^3/uL (0-0.1) 12/12/23 10:24 Differential Comment MANUAL DIFFERENTIAL 12/12/23 10:24 Platelet Estimate INCREASED (>450,000) (NORMAL) 12/12/23 10:24 RBC Morph Micro Appear 1+ ANISOCYTOSIS (NORMAL) 12/12/23 10:24 D-Dimer 365.1 ng/mL (200.0-255.0) H 12/08/23 23:46 Bld Gas Analysis Time 0655 12/12/23 06:45 Sample Site RIGHT RADIAL 12/12/23 06:45 ABG pH 7.46 (7.35-7.45) H 12/12/23 06:45 ABG pCO2 46 mmHg (34-45) H 12/12/23 06:45 ABG pO2 53 mmHg (80-100) L 12/12/23 06:45 ABG HCO3 31.8 mmol/L (22.0-26.0) H 12/12/23 06:45 ABG Total CO2 33.2 MMOL/L (21.0-29.0) H 12/12/23 06:45 ABG O2 Saturation 87 % (94-98) L* 12/12/23 06:45 ABG Base Excess 6.6 mmol/L (-2.0-3.0) H 12/12/23 06:45 Kike Test POSITIVE 12/12/23 06:45 Respiration Rate 12 b/min 12/12/23 06:45 O2 Delivery Device BiPAP 12/12/23 06:45 FiO2 30.00 12/12/23 06:45 EPAP 5 cmH2O 12/12/23 06:45 IPAP 10 cmH2O 12/12/23 06:45 Sodium 137 mmol/L (135-145) 12/12/23 09:41 Potassium 4.1 mmol/L (3.5-4.5) 12/12/23 09:41 Chloride 100 mmol/L (101-111) L 12/12/23 09:41 Carbon Dioxide 31 mmol/L (21-32) 12/12/23 09:41 Anion Gap 6.0 (6-13) 12/12/23 09:41 BUN 25 mg/dL (6-20) H 12/12/23 09:41 Creatinine 0.6 mg/dL (0.6-1.3) 12/12/23 09:41 Estimated GFR (MDRD) 105 (>89) 12/12/23 09:41 Glucose 114 mg/dL (74-104) H 12/12/23 09:41 Lactic Acid 0.8 mmol/L (0.5-2.2) 12/12/23 10:24 Calcium 9.9 mg/dL (8.5-10.3) 12/12/23 09:41 Phosphorus 3.3 mg/dL (2.5-5.0) 12/12/23 09:41 Magnesium 2.2 mg/dL (1.7-2.3) 12/12/23 09:41 Total Bilirubin 0.6 mg/dL (0.2-1.0) 12/08/23 23:46 AST 21 IU/L (10-42) 12/08/23 23:46 ALT 14 IU/L (10-60) 12/08/23 23:46 Alkaline Phosphatase 87 IU/L (42-121) 12/08/23 23:46 Troponin I High Sens 43.9 ng/L (2.3-14.8) H* 12/09/23 01:58 B-Natriuretic Peptide 178 pg/mL (5-100) H 12/08/23 23:46 Total Protein 7.3 g/dL (6.4-8.9) 12/08/23 23:46 Albumin 3.9 g/dL (3.2-5.5) 12/08/23 23:46 Globulin 3.4 g/dL (2.1-4.2) 12/08/23 23:46 Albumin/Globulin Ratio 1.1 (1.0-2.2) 12/08/23 23:46 Lipase < 10 U/L (11-82) L 12/08/23 23:46 Procalcitonin Immunoas 0.26 ng/mL (<0.5) 12/09/23 01:58 Nasal Adenovirus (PCR) NOT DETECTED 12/08/23 23:46 Nasal B. parapertussis DNA (PCR) NOT DETECTED 12/08/23 23:46 Nasal Coronavir 229E PCR NOT DETECTED 12/08/23 23:46 Nasal Coronavir HKU1 PCR NOT DETECTED 12/08/23 23:46 Nasal Coronavir NL63 PCR NOT DETECTED 12/08/23 23:46 Nasal Coronavir OC43 PCR NOT DETECTED 12/08/23 23:46 Nasal Enterovir/Rhinovir PCR DETECTED A 12/08/23 23:46 Nasal Influenza B PCR NOT DETECTED 12/08/23 23:46 Nasal Influenza A PCR NOT DETECTED 12/08/23 23:46 Nasal Parainfluen 1 PCR NOT DETECTED 12/08/23 23:46 Nasal Parainfluen 2 PCR NOT DETECTED 12/08/23 23:46 Nasal Parainfluen 3 PCR NOT DETECTED 12/08/23 23:46 Nasal Parainfluen 4 PCR NOT DETECTED 12/08/23 23:46 Nasal RSV (PCR) NOT DETECTED 12/08/23 23:46 Nasal Screen MRSA (PCR) POSITIVE (NEGATIVE) A* 12/11/23 07:00 Nasal B.pertussis DNA PCR NOT DETECTED 12/08/23 23:46 Nasal C.pneumoniae (PCR) NOT DETECTED 12/08/23 23:46 Fe Human Metapneumo PCR NOT DETECTED 12/08/23 23:46 Nasal M.pneumoniae (PCR) NOT DETECTED 12/08/23 23:46 Nasal SARS-CoV-2 (PCR) NOT DETECTED 12/08/23 23:46 Sepsis Event Note (H) - Evaluation Current Stage of Sepsis: Sepsis Possible source of Sepsis: positive: Pulmonary (Viral) - Sepsis Criteria Sepsis Criteria: Recorded Heart Rate greater than 90 bpm, Recorded Respiratory Rate greater than 20, Respiratory: Increasing oxygen requirements, WBC count greater than 12,000 or less than 4000 ABX Reporting Has patient been on IV antibiotics over the past 48 hours?: Yes
[2023-12-12] MEDS: methylPREDNISolone SUCCINATE 40 MG/ML VIAL IVP SCH (12:23)
[2023-12-12] MEDS: PIPERACILLIN/TAZOBACTAM 3.375 GM in SODIUM CHLORIDE 0.9% MINIBAG 100 ML IV SCH (12:31)
[2023-12-13] MEDS: METHADONE 5 MG TABLET PO SCH (08:16)
--- NOTE | 2023-12-13 16:01 | PROVIDER PROGRESS NOTE ---
Assessment/Plan - Problem List (1) Asthma exacerbation Qualifiers: Asthma severity: severe Asthma persistence: persistent Qualified Code(s): J45.51 - Severe persistent asthma with (acute) exacerbation Assessment/Plan: Asthma exacerbation most likely secondary to rhinovirus infection. Continue Solu-Medrol and bronchodilator therapy. Treatment initiated with nebulized formoterol. Patient reports her breathing is mildly improved today. Trial of diuresis today. Patient to receive 20 mg of furosemide IV. (2) Acute hypoxemic respiratory failure Conclusion/Plan: From Asthma and rhinovirus. O2 support. Patient transferred to the intensive care unit for initiation of Positive airway pressure therapy. Continue Zosyn. Sedation with lorazepam and morphine as needed (3) Sepsis Conclusion/Plan: Sepsis is resolving. Patient remains on Zosyn for empiric antibiotic coverage given her significant leukocytosis. Continue to monitor hemodynamics. (4) Type 2 NM (myocardial infarction) Conclusion/Plan: From hypoxemia and acute asthma. No evidence of ACS. (5) Rhinovirus infection Conclusion/Plan: Supportive care. (6) Hypokalemia Conclusion/Plan: Recheck potassium. - Current Meds Current Meds: Current Medications Generic Name Dose Route Start Last Admin Trade Name Freq PRN Reason Stop Dose Admin Acetaminophen 650 mg 12/09/23 09:57 12/13/23 00:17 Acetaminophen 325 Mg Tablet PO 650 mg Q4HR PRN Administration Pain 1 to 4, or Fever Albuterol/Ipratropium 3 ml 12/09/23 11:00 12/13/23 14:56 Ipratropium/Albuterol 3 Ml Neb INH 3 ml RTQID ALEXANDRA Administration Alcohol 1 amp 12/11/23 12:00 12/13/23 08:16 Ethyl Alcohol 62% Swab Ampule FE 1 amp BID ALEXANDRA Administration Ascorbic Acid 500 mg 12/10/23 12:00 12/13/23 08:16 Ascorbic Acid 500 Mg Tablet PO 500 mg DAILY ALEXANDRA Administration Enoxaparin Sodium 40 mg 12/09/23 10:00 12/13/23 08:16 Enoxaparin 40 Mg/0.4 Ml Syringe SUBQ 40 mg DAILY ALEXANDRA Administration Guaifenesin 600 mg 12/09/23 21:00 12/13/23 08:16 Guaifenesin 600 Mg Tablet PO 600 mg BID ALEXANDRA Administration Piperacillin Sod/Tazobactam 100 mls @ 200 mls/hr 12/12/23 12:00 12/13/23 12:34 Sod 3.375 gm/ Sodium Chloride IV Infused Q6H ALEXANDRA Infusion Lorazepam 0.5 mg 12/11/23 07:46 12/13/23 15:36 Lorazepam 2 Mg/Ml Vial IVP 0.5 mg Q4H PRN Administration Anxiety Methadone HCl 5 mg 12/13/23 09:00 12/13/23 08:16 Methadone 5 Mg Tablet PO 5 mg DAILY ALEXANDRA Administration Methylprednisolone 80 mg 12/12/23 12:00 12/13/23 11:47 Methylprednisolone Succinate 40 Mg/Ml Vial IVP 80 mg Q8H ALEXANDRA Administration Morphine Sulfate 2 mg 12/12/23 11:22 12/13/23 09:29 Morphine 2 Mg/Ml Carpuject IVP 2 mg Q2HR PRN Administration Severe Pain (Level 7-10) Nicotine 1 patch 12/09/23 12:00 12/13/23 08:16 Nicotine 21 Mg Patch TOP 1 patch DAILY ALEXANDRA Administration Multivit/Folic Acid/Iron 1 tab 12/10/23 12:00 12/13/23 08:16 Vitamin Tablet PO 1 tab DAILYWM ALEXANDRA Administration Sodium Chloride 10 ml 12/09/23 09:57 12/13/23 02:00 Sodium Chloride Flush 0.9% 10 Ml Syringe IVP 10 ml PRN PRN Administration NEEDED PER PROVIDER ORDERS Sodium Chloride 10 ml 12/09/23 17:00 12/13/23 08:16 Sodium Chloride Flush 0.9% 10 Ml Syringe IVP 10 ml 0100,0900,1700 ALEXANDRA Administration - Lab Result Fish Bone Diagrams: 12/12/23 10:24 12/12/23 09:41 - Additional Planning My Orders: My Active Orders 12/13/23 09:00 Methadone [Methadone Hcl] 5 mg PO DAILY Subjective - Subjective Patient Reports: Other (Alert. She reports her breathing is mildly improved. She denies chest pain and abdominal pain. She has no other complaints at this time.) Objective Vital Signs: Vital Signs - 24 hr 12/12/23 12/12/23 12/12/23 16:00 17:00 18:00 Temperature 36.9 C Heart Rate Heart Rate [ 88 94 92 Monitoring electrodes] Respiratory 35 H 31 H 29 H Rate Blood Pressure 158/99 H 165/98 H 156/94 H [Left Brachial artery] O2 Saturation 92 94 92 If not protocol : Oxygen Flow, liters/minute 12/12/23 12/12/23 12/12/23 18:55 19:00 19:07 Temperature Heart Rate 77 77 Heart Rate [ 88 Monitoring electrodes] Respiratory 31 H 34 H Rate Blood Pressure 161/100 H [Left Brachial artery] O2 Saturation 95 If not protocol : Oxygen Flow, liters/minute 12/12/23 12/12/23 12/12/23 20:00 21:00 21:54 Temperature 36.6 C Heart Rate 84 Heart Rate [ 91 77 Monitoring electrodes] Respiratory 35 H 38 H Rate Blood Pressure 154/103 H 154/103 H [Left Brachial artery] O2 Saturation 94 93 If not protocol 6 : Oxygen Flow, liters/minute 12/12/23 12/12/23 12/13/23 22:00 23:00 00:00 Temperature Heart Rate 80 Heart Rate [ 76 91 92 Monitoring electrodes] Respiratory 34 H 29 H 31 H Rate Blood Pressure 155/101 H 159/97 H 165/103 H [Left Brachial artery] O2 Saturation 93 94 97 If not protocol : Oxygen Flow, liters/minute 12/13/23 12/13/23 12/13/23 01:00 01:45 02:00 Temperature Heart Rate 81 Heart Rate [ 82 85 Monitoring electrodes] Respiratory 35 H 31 H Rate Blood Pressure 186/106 H 155/99 H [Left Brachial artery] O2 Saturation 99 100 If not protocol : Oxygen Flow, liters/minute 12/13/23 12/13/23 12/13/23 03:00 04:00 04:55 Temperature Heart Rate 78 Heart Rate [ 75 67 Monitoring electrodes] Respiratory 35 H 34 H Rate Blood Pressure 144/101 H 150/101 H [Left Brachial artery] O2 Saturation 94 96 If not protocol : Oxygen Flow, liters/minute 12/13/23 12/13/23 12/13/23 05:00 05:57 06:00 Temperature Heart Rate Heart Rate [ 76 80 Monitoring electrodes] Respiratory 23 22 Rate Blood Pressure 163/99 H 163/107 H [Left Brachial artery] O2 Saturation 99 92 If not protocol 6 : Oxygen Flow, liters/minute 12/13/23 12/13/23 12/13/23 06:37 06:40 07:00 Temperature Heart Rate 79 75 Heart Rate [ 83 Monitoring electrodes] Respiratory 33 H 27 H Rate Blood Pressure 167/98 H [Left Brachial artery] O2 Saturation 98 If not protocol : Oxygen Flow, liters/minute 12/13/23 12/13/23 12/13/23 09:00 10:00 10:02 Temperature 36.7 C Heart Rate 85 Heart Rate [ 88 82 Monitoring electrodes] Respiratory 29 H 33 H 36 H Rate Blood Pressure 157/104 H 158/98 H [Left Brachial artery] O2 Saturation 97 95 If not protocol : Oxygen Flow, liters/minute 12/13/23 12/13/23 12/13/23 10:03 10:44 10:45 Temperature Heart Rate 84 Heart Rate [ Monitoring electrodes] Respiratory Rate Blood Pressure [Left Brachial artery] O2 Saturation If not protocol 4 4 : Oxygen Flow, liters/minute 12/13/23 12/13/23 12/13/23 11:00 12:00 12:57 Temperature Heart Rate Heart Rate [ 76 Monitoring electrodes] Respiratory 29 H Rate Blood Pressure 155/95 H [Left Brachial artery] O2 Saturation 92 If not protocol 4 5 4 : Oxygen Flow, liters/minute 12/13/23 12/13/23 12/13/23 13:00 14:00 14:57 Temperature Heart Rate 93 Heart Rate [ 76 78 Monitoring electrodes] Respiratory 31 H 32 H 32 H Rate Blood Pressure 163/84 H 145/81 H [Left Brachial artery] O2 Saturation 93 92 If not protocol 4 4 4.5 : Oxygen Flow, liters/minute 12/13/23 12/13/23 15:00 15:18 Temperature Heart Rate Heart Rate [ 77 Monitoring electrodes] Respiratory 22 Rate Blood Pressure 139/99 H [Left Brachial artery] O2 Saturation 93 If not protocol 4 4 : Oxygen Flow, liters/minute Oxygen O2 Source Oxymask Oxygen Flow Rate 15 I&O (Last 24 Hrs): Intake and Output Totals x24h 12/11/23 12/12/23 12/13/23 23:59 23:59 23:59 Intake Total 757 770 950 Output Total 400 400 200 Balance 357 370 750 General: Oriented x3, No acute distress HEENT: Atraumatic Neck: No JVD Neuro: Alert, Non Focal Cardiovascular: Other (Positive S1-S2 no extra heart sounds.) Respiratory: Other (Improved air exchange. Positive expiratory wheezing bilaterally. No crackles.) Abdomen: Other (Soft nontender nondistended positive bowel sounds) Extremities: No clubbing, No edema Skin: No rashes - Results Results: Laboratory Results WBC 22.1 x10^3/uL (4.8-10.8) H 12/12/23 10:24 RBC 5.85 10^6/uL (4.20-5.40) H 12/12/23 10:24 Hgb 15.7 g/dL (12.0-16.0) 12/12/23 10:24 Hct 49.6 % (37.0-47.0) H 12/12/23 10:24 MCV 84.8 fL (81.0-99.0) 12/12/23 10:24 MCH 26.8 pg (27.0-31.0) L 12/12/23 10:24 MCHC 31.7 g/dL (32.0-36.0) L 12/12/23 10:24 RDW 13.3 % (12.0-15.0) 12/12/23 10:24 Plt Count 489 10^3/uL (130-450) H 12/12/23 10:24 MPV 9.3 fL (7.9-10.8) 12/12/23 10:24 Neut # (Auto) Not Reportable 12/12/23 10:24 Lymph # (Auto) Not Reportable 12/12/23 10:24 Mckenzie # (Auto) Not Reportable 12/12/23 10:24 Eos # (Auto) Not Reportable 12/12/23 10:24 Baso # (Auto) Not Reportable 12/12/23 10:24 Absolute Nucleated RBC Not Reportable 12/12/23 10:24 Total Counted 100 12/12/23 10:24 Band Neuts % (Manual) 0 % (0-10) 12/12/23 10:24 Reactive Lymphs % (Man) 1 % 12/12/23 10:24 Abnorm Lymph % (Manual) 0 % 12/12/23 10:24 Nucleated RBC % Not Reportable 12/12/23 10:24 Neutrophils # (Manual) 20.3 10^3/uL (1.5-6.6) H 12/12/23 10:24 Lymphocytes # (Manual) 1.1 10^3/uL (1.5-3.5) L 12/12/23 10:24 Monocytes # (Manual) 0.7 10^3/uL (0.0-1.0) 12/12/23 10:24 Eosinophils # (Manual) 0.0 10^3/uL (0-0.7) 12/12/23 10:24 Basophils # (Manual) 0.0 10^3/uL (0-0.1) 12/12/23 10:24 Differential Comment MANUAL DIFFERENTIAL 12/12/23 10:24 Platelet Estimate INCREASED (>450,000) (NORMAL) 12/12/23 10:24 RBC Morph Micro Appear 1+ ANISOCYTOSIS (NORMAL) 12/12/23 10:24 D-Dimer 365.1 ng/mL (200.0-255.0) H 12/08/23 23:46 Bld Gas Analysis Time 0655 12/12/23 06:45 Sample Site RIGHT RADIAL 12/12/23 06:45 ABG pH 7.46 (7.35-7.45) H 12/12/23 06:45 ABG pCO2 46 mmHg (34-45) H 12/12/23 06:45 ABG pO2 53 mmHg (80-100) L 12/12/23 06:45 ABG HCO3 31.8 mmol/L (22.0-26.0) H 12/12/23 06:45 ABG Total CO2 33.2 MMOL/L (21.0-29.0) H 12/12/23 06:45 ABG O2 Saturation 87 % (94-98) L* 12/12/23 06:45 ABG Base Excess 6.6 mmol/L (-2.0-3.0) H 12/12/23 06:45 Kike Test POSITIVE 12/12/23 06:45 Respiration Rate 12 b/min 12/12/23 06:45 O2 Delivery Device BiPAP 12/12/23 06:45 FiO2 30.00 12/12/23 06:45 EPAP 5 cmH2O 12/12/23 06:45 IPAP 10 cmH2O 12/12/23 06:45 Sodium 137 mmol/L (135-145) 12/12/23 09:41 Potassium 4.1 mmol/L (3.5-4.5) 12/12/23 09:41 Chloride 100 mmol/L (101-111) L 12/12/23 09:41 Carbon Dioxide 31 mmol/L (21-32) 12/12/23 09:41 Anion Gap 6.0 (6-13) 12/12/23 09:41 BUN 25 mg/dL (6-20) H 12/12/23 09:41 Creatinine 0.6 mg/dL (0.6-1.3) 12/12/23 09:41 Estimated GFR (MDRD) 105 (>89) 12/12/23 09:41 Glucose 114 mg/dL (74-104) H 12/12/23 09:41 Lactic Acid 0.8 mmol/L (0.5-2.2) 12/12/23 10:24 Calcium 9.9 mg/dL (8.5-10.3) 12/12/23 09:41 Phosphorus 3.3 mg/dL (2.5-5.0) 12/12/23 09:41 Magnesium 2.2 mg/dL (1.7-2.3) 12/12/23 09:41 Total Bilirubin 0.6 mg/dL (0.2-1.0) 12/08/23 23:46 AST 21 IU/L (10-42) 12/08/23 23:46 ALT 14 IU/L (10-60) 12/08/23 23:46 Alkaline Phosphatase 87 IU/L (42-121) 12/08/23 23:46 Troponin I High Sens 43.9 ng/L (2.3-14.8) H* 12/09/23 01:58 B-Natriuretic Peptide 178 pg/mL (5-100) H 12/08/23 23:46 Total Protein 7.3 g/dL (6.4-8.9) 12/08/23 23:46 Albumin 3.9 g/dL (3.2-5.5) 12/08/23 23:46 Globulin 3.4 g/dL (2.1-4.2) 12/08/23 23:46 Albumin/Globulin Ratio 1.1 (1.0-2.2) 12/08/23 23:46 Lipase < 10 U/L (11-82) L 12/08/23 23:46 Procalcitonin Immunoas 0.26 ng/mL (<0.5) 12/09/23 01:58 Nasal Adenovirus (PCR) NOT DETECTED 12/08/23 23:46 Nasal B. parapertussis DNA (PCR) NOT DETECTED 12/08/23 23:46 Nasal Coronavir 229E PCR NOT DETECTED 12/08/23 23:46 Nasal Coronavir HKU1 PCR NOT DETECTED 12/08/23 23:46 Nasal Coronavir NL63 PCR NOT DETECTED 12/08/23 23:46 Nasal Coronavir OC43 PCR NOT DETECTED 12/08/23 23:46 Nasal Enterovir/Rhinovir PCR DETECTED A 12/08/23 23:46 Nasal Influenza B PCR NOT DETECTED 12/08/23 23:46 Nasal Influenza A PCR NOT DETECTED 12/08/23 23:46 Nasal Parainfluen 1 PCR NOT DETECTED 12/08/23 23:46 Nasal Parainfluen 2 PCR NOT DETECTED 12/08/23 23:46 Nasal Parainfluen 3 PCR NOT DETECTED 12/08/23 23:46 Nasal Parainfluen 4 PCR NOT DETECTED 12/08/23 23:46 Nasal RSV (PCR) NOT DETECTED 12/08/23 23:46 Nasal Screen MRSA (PCR) POSITIVE (NEGATIVE) A* 12/11/23 07:00 Nasal B.pertussis DNA PCR NOT DETECTED 12/08/23 23:46 Nasal C.pneumoniae (PCR) NOT DETECTED 12/08/23 23:46 Fe Human Metapneumo PCR NOT DETECTED 12/08/23 23:46 Nasal M.pneumoniae (PCR) NOT DETECTED 12/08/23 23:46 Nasal SARS-CoV-2 (PCR) NOT DETECTED 12/08/23 23:46 Sepsis Event Note (H) - Evaluation Current Stage of Sepsis: Sepsis Possible source of Sepsis: positive: Pulmonary (Viral) - Sepsis Criteria Sepsis Criteria: Recorded Heart Rate greater than 90 bpm, Recorded Respiratory Rate greater than 20, Respiratory: Increasing oxygen requirements, WBC count greater than 12,000 or less than 4000
[2023-12-13] MEDS: FUROSEMIDE 20 MG/2 ML VIAL IVP ONE (16:28)
[2023-12-13 23:02] LABS: HCT - HEMATOCRIT 52.5 % (37.0-47.0); HGB - HEMOGLOBIN 16.7 g/dL (12.0-16.0); MEAN CORPUSCULAR HEMOGLOBIN 26.7 pg (27.0-31.0); MEAN CORPUSCULAR HGB CONC 31.8 g/dL (32.0-36.0); MEAN PLATELET VOLUME 9.6 fL (7.9-10.8); RED BLOOD COUNT 6.25 10^6/uL (4.20-5.40); WHITE BLOOD COUNT 21.5 x10^3/uL (4.8-10.8)
[2023-12-13 23:29] LABS: CALCIUM 9.7 mg/dL (8.5-10.3); CREATININE 0.6 mg/dL (0.6-1.3); POTASSIUM 3.9 mmol/L (3.5-4.5)
[2023-12-13] MEDS: POTASSIUM CHLORIDE 20 MEQ TABLET PO ONE (23:47)
[2023-12-14] MEDS: ONDANSETRON 4 MG/2 ML VIAL IVP PRN (04:01)
[2023-12-14 05:04] LABS: CALCIUM, IONIZED 1.06 mmol/L (1.15-1.33); VBG PH 7.551 (7.31-7.41)
[2023-12-14 05:20] LABS: MAGNESIUM 2.2 mg/dL (1.7-2.3); PHOSPHORUS 4.5 mg/dL (2.5-5.0); POTASSIUM 3.9 mmol/L (3.5-4.5)
[2023-12-14] MEDS: CALCIUM CARBONATE CHEW 500 MG TABLET PO SCH (06:17)
[2023-12-14] MEDS: POTASSIUM CHLORIDE 20 MEQ TABLET PO ONE (06:17)
[2023-12-14 17:52] LABS: BASOPHILS % (AUTO) 0.8 %; HCT - HEMATOCRIT 55.7 % (37.0-47.0); HGB - HEMOGLOBIN 17.4 g/dL (12.0-16.0); LYMPHOCYTES % (AUTO) 7.2 %; MEAN CORPUSCULAR HEMOGLOBIN 27.1 pg (27.0-31.0); MEAN CORPUSCULAR HGB CONC 31.2 g/dL (32.0-36.0); MEAN CORPUSCULAR VOLUME 86.9 fL (81.0-99.0); MEAN PLATELET VOLUME 9.7 fL (7.9-10.8); MONOCYTES % (AUTO) 4.4 %; NEUTROPHILS % (AUTO) 82.6 %; PLT - PLATELET COUNT 421 10^3/uL (130-450); RED BLOOD COUNT 6.41 10^6/uL (4.20-5.40); RED CELL DISTRIBUTION WIDTH 13.2 % (12.0-15.0); WHITE BLOOD COUNT 20.1 x10^3/uL (4.8-10.8)
[2023-12-14 18:01] LABS: ABNORMAL LYMPHS % (MANUAL) 0 %
[2023-12-14 18:40] LABS: BAND NEUTROPHILS % (MANUAL) 1 %; DIFFERENTIAL COMMENT MANUAL DIFFERENTIAL; LYMPHOCYTES % (MANUAL) 5 %; MONOCYTES # (MANUAL) 1.4 10^3/uL (0.0-1.0); MYELOCYTES % (MANUAL) 2 %; NEUTROPHILS # (MANUAL) 17.3 10^3/uL (1.5-6.6); PLATELET ESTIMATE, MANUAL NORMAL (130-450,000) (NORMAL); PLATELET MORPHOLOGY NORMAL APPEARANCE (NORMAL); RBC MORPHOLOGY (MULTIPLE) NORMAL APPEARANCE (NORMAL)
--- NOTE | 2023-12-14 20:47 | PROVIDER PROGRESS NOTE ---
Assessment/Plan - Problem List (1) Asthma exacerbation Qualifiers: Asthma severity: severe Asthma persistence: persistent Qualified Code(s): J45.51 - Severe persistent asthma with (acute) exacerbation Assessment/Plan: Asthma exacerbation most likely secondary to rhinovirus infection. Continue Solu-Medrol and bronchodilator therapy. Continue nebulized formoterol. Patient reports her breathing continues to improve Trial of diuresis today. Patient to receive 20 mg of furosemide IV. (2) Acute hypoxemic respiratory failure Conclusion/Plan: From Asthma and rhinovirus. O2 support. Patient off of bilevel positive airway pressure therapy throughout the night. Continue Zosyn. Sedation with lorazepam and morphine as needed (3) Sepsis Conclusion/Plan: Sepsis is resolving. Patient remains on Zosyn for empiric antibiotic coverage given her significant leukocytosis. Continue to monitor hemodynamics. (4) Type 2 [place] (myocardial infarction) Conclusion/Plan: From hypoxemia and acute asthma. No evidence of ACS. (5) Rhinovirus infection Conclusion/Plan: Supportive care. (6) Hypokalemia Conclusion/Plan: Replace as needed. - Current Meds Current Meds: Current Medications Generic Name Dose Route Start Last Admin Trade Name Freq PRN Reason Stop Dose Admin Acetaminophen 650 mg 12/09/23 09:57 12/14/23 20:13 Acetaminophen 325 Mg Tablet PO 650 mg Q4HR PRN Administration Pain 1 to 4, or Fever Albuterol/Ipratropium 3 ml 12/09/23 11:00 12/14/23 19:30 Ipratropium/Albuterol 3 Ml Neb INH 3 ml RTQID ALEXANDRA Administration Alcohol 1 amp 12/11/23 12:00 12/14/23 20:14 Ethyl Alcohol 62% Swab Ampule FE 1 amp BID ALEXANDRA Administration Ascorbic Acid 500 mg 12/10/23 12:00 12/14/23 08:21 Ascorbic Acid 500 Mg Tablet PO 500 mg DAILY ALEXANDRA Administration Enoxaparin Sodium 40 mg 12/09/23 10:00 12/14/23 08:20 Enoxaparin 40 Mg/0.4 Ml Syringe SUBQ 40 mg DAILY ALEXANDRA Administration Guaifenesin 600 mg 12/09/23 21:00 12/14/23 20:13 Guaifenesin 600 Mg Tablet PO 600 mg BID ALEXANDRA Administration Piperacillin Sod/Tazobactam 100 mls @ 200 mls/hr 12/12/23 12:00 12/14/23 19:51 Sod 3.375 gm/ Sodium Chloride IV Infused Q6H ALEXANDRA Infusion Lorazepam 0.5 mg 12/11/23 07:46 12/14/23 19:59 Lorazepam 2 Mg/Ml Vial IVP 0.5 mg Q4H PRN Administration Anxiety Methadone HCl 5 mg 12/13/23 09:00 12/14/23 08:21 Methadone 5 Mg Tablet PO 5 mg DAILY ALEXANDRA Administration Methylprednisolone 80 mg 12/12/23 12:00 12/14/23 19:58 Methylprednisolone Succinate 40 Mg/Ml Vial IVP 80 mg Q8H ALEXANDRA Administration Morphine Sulfate 2 mg 12/12/23 11:22 12/14/23 18:30 Morphine 2 Mg/Ml Carpuject IVP 2 mg Q2HR PRN Administration Severe Pain (Level 7-10) Nicotine 1 patch 12/09/23 12:00 12/14/23 08:21 Nicotine 21 Mg Patch TOP 1 patch DAILY ALEXANDRA Administration Ondansetron HCl 4 mg 12/14/23 03:08 12/14/23 04:01 Ondansetron 4 Mg/2 Ml Vial IVP 4 mg Q6HR PRN Administration Nausea / Vomiting Multivit/Folic Acid/Iron 1 tab 12/10/23 12:00 12/14/23 08:21 Vitamin Tablet PO 1 tab DAILYWM ALEXANDRA Administration Sodium Chloride 10 ml 12/09/23 09:57 12/13/23 02:00 Sodium Chloride Flush 0.9% 10 Ml Syringe IVP 10 ml PRN PRN Administration NEEDED PER PROVIDER ORDERS Sodium Chloride 10 ml 12/09/23 17:00 12/14/23 13:25 Sodium Chloride Flush 0.9% 10 Ml Syringe IVP 10 ml 0100,0900,1700 ALEXANDRA Administration - Lab Result Fish Bone Diagrams: 12/14/23 17:35 12/14/23 04:32 - Additional Planning My Orders: My Active Orders 12/13/23 21:26 Initiate ICU Electrolyte Prot. [RC] QSHIFT 12/14/23 19:45 cdiff [C DIFF PCR] Routine Subjective - Subjective Patient Reports: Other (Alert. Reports her breathing appears to be mildly improved. She denies chest pain and abdominal pain. She has no other complaints at this time.) Objective Vital Signs: Vital Signs - 24 hr 12/13/23 12/13/2324 21:00 22:00 23:00 Temperature Heart Rate Heart Rate [ 92 78 80 Monitoring electrodes] Respiratory 28 H 28 H 29 H Rate Blood Pressure 146/84 H 156/91 H 145/90 H [Left Brachial artery] O2 Saturation 97 95 93 If not protocol 5 5 5 : Oxygen Flow, liters/minute 12/14/23 12/14/23 12/14/23 00:00 01:00 02:00 Temperature Heart Rate Heart Rate [ 80 81 81 Monitoring electrodes] Respiratory 27 H 24 29 H Rate Blood Pressure 151/93 H 151/103 H 149/92 H [Left Brachial artery] O2 Saturation 94 94 92 If not protocol 7 7 7 : Oxygen Flow, liters/minute 12/14/23 12/14/23 12/14/23 03:00 04:00 05:00 Temperature 37.2 C Heart Rate Heart Rate [ 76 81 77 Monitoring electrodes] Respiratory 30 H 30 H 28 H Rate Blood Pressure 157/104 H 141/93 H 159/107 H [Left Brachial artery] O2 Saturation 93 93 95 If not protocol 7 7 5 : Oxygen Flow, liters/minute 12/14/23 12/14/23 12/14/23 06:00 06:37 07:00 Temperature Heart Rate Heart Rate [ 75 70 Monitoring electrodes] Respiratory 27 H 27 H Rate Blood Pressure 154/100 H 149/107 H [Left Brachial artery] O2 Saturation 100 95 If not protocol 5 5 5 : Oxygen Flow, liters/minute 12/14/23 12/14/23 12/14/23 07:31 08:00 09:00 Temperature 36.5 C Heart Rate 82 Heart Rate [ 79 84 Monitoring electrodes] Respiratory 22 30 H 31 H Rate Blood Pressure 166/85 H 157/99 H [Left Brachial artery] O2 Saturation 97 93 If not protocol 5 : Oxygen Flow, liters/minute 12/14/23 12/14/23 12/14/23 10:00 11:00 11:15 Temperature Heart Rate 82 Heart Rate [ 87 84 Monitoring electrodes] Respiratory 34 H 25 H 28 H Rate Blood Pressure 142/82 H 136/88 H [Left Brachial artery] O2 Saturation 94 93 If not protocol 5 5 5 : Oxygen Flow, liters/minute 12/14/23 12/14/23 12/14/23 12:00 13:00 14:00 Temperature 36.9 C Heart Rate Heart Rate [ 77 94 98 Monitoring electrodes] Respiratory 30 H 22 27 H Rate Blood Pressure 152/71 H 131/72 H 137/76 H [Left Brachial artery] O2 Saturation 94 95 93 If not protocol 5 5 5 : Oxygen Flow, liters/minute 12/14/23 12/14/23 12/14/23 14:55 15:00 16:00 Temperature Heart Rate Heart Rate [ 92 86 Monitoring electrodes] Respiratory 28 H 24 Rate Blood Pressure 128/82 H 138/90 H [Left Brachial artery] O2 Saturation 91 L 94 If not protocol 5 5 5 : Oxygen Flow, liters/minute 12/14/23 12/14/23 12/14/23 17:00 18:00 19:00 Temperature Heart Rate Heart Rate [ 95 86 87 Monitoring electrodes] Respiratory 33 H 32 H 24 Rate Blood Pressure 133/94 H 133/91 H 138/88 H [Left Brachial artery] O2 Saturation 95 95 93 If not protocol 5 4 4 : Oxygen Flow, liters/minute 12/14/23 12/14/23 19:05 20:00 Temperature 37 C Heart Rate 87 Heart Rate [ 91 Monitoring electrodes] Respiratory 20 28 H Rate Blood Pressure 139/78 H [Left Brachial artery] O2 Saturation 93 If not protocol 4 5 : Oxygen Flow, liters/minute Oxygen O2 Source Oxymizer Oxygen Flow Rate 15 I&O (Last 24 Hrs): Intake and Output Totals x24h 12/12/23 12/13/23 12/14/23 23:59 23:59 23:59 Intake Total 770 1200 1520 Output Total 400 1200 100 Balance 370 0 1420 General: Alert, Oriented x3 Neck: Supple, No JVD Neuro: Alert, Non Focal Cardiovascular: Other (Positive S1-S2 no extra heart sounds.) Respiratory: Other (Improved air exchange in all lung tellez positive expiratory wheezing. No crackles.) Abdomen: Other (Soft nontender nondistended positive bowel sound) Extremities: No cyanosis, No edema Skin: No rashes - Results Results: Laboratory Results WBC 20.1 x10^3/uL (4.8-10.8) H 12/14/23 17:35 RBC 6.41 10^6/uL (4.20-5.40) H 12/14/23 17:35 Hgb 17.4 g/dL (12.0-16.0) H 12/14/23 17:35 Hct 55.7 % (37.0-47.0) H 12/14/23 17:35 MCV 86.9 fL (81.0-99.0) 12/14/23 17:35 MCH 27.1 pg (27.0-31.0) 12/14/23 17:35 MCHC 31.2 g/dL (32.0-36.0) L 12/14/23 17:35 RDW 13.2 % (12.0-15.0) 12/14/23 17:35 Plt Count 421 10^3/uL (130-450) 12/14/23 17:35 MPV 9.7 fL (7.9-10.8) 12/14/23 17:35 Neut # (Auto) Not Reportable 12/14/23 17:35 Lymph # (Auto) Not Reportable 12/14/23 17:35 [place] # (Auto) Not Reportable 12/14/23 17:35 Eos # (Auto) Not Reportable 12/14/23 17:35 Baso # (Auto) Not Reportable 12/14/23 17:35 Absolute Nucleated RBC Not Reportable 12/14/23 17:35 Total Counted 100 12/14/23 17:35 Band Neuts % (Manual) 1 % (0-10) 12/14/23 17:35 Reactive Lymphs % (Man) 1 % 12/12/23 10:24 Abnorm Lymph % (Manual) 0 % 12/14/23 17:35 Myelocytes % 2 % (-0) H 12/14/23 17:35 Nucleated RBC % Not Reportable 12/14/23 17:35 Neutrophils # (Manual) 17.3 10^3/uL (1.5-6.6) H 12/14/23 17:35 Lymphocytes # (Manual) 1.0 10^3/uL (1.5-3.5) L 12/14/23 17:35 Monocytes # (Manual) 1.4 10^3/uL (0.0-1.0) H 12/14/23 17:35 Eosinophils # (Manual) 0.0 10^3/uL (0-0.7) 12/14/23 17:35 Basophils # (Manual) 0.0 10^3/uL (0-0.1) 12/14/23 17:35 Differential Comment MANUAL DIFFERENTIAL 12/14/23 17:35 Platelet Estimate NORMAL (130-450,000) (NORMAL) 12/14/23 17:35 Platelet Morphology NORMAL APPEARANCE (NORMAL) 12/14/23 17:35 RBC Morph Micro Appear NORMAL APPEARANCE (NORMAL) 12/14/23 17:35 D-Dimer 365.1 ng/mL (200.0-255.0) H 12/08/23 23:46 Bld Gas Analysis Time 0655 12/12/23 06:45 Sample Site RIGHT RADIAL 12/12/23 06:45 ABG pH 7.46 (7.35-7.45) H 12/12/23 06:45 ABG pCO2 46 mmHg (34-45) H 12/12/23 06:45 ABG pO2 53 mmHg (80-100) L 12/12/23 06:45 ABG HCO3 31.8 mmol/L (22.0-26.0) H 12/12/23 06:45 ABG Total CO2 33.2 MMOL/L (21.0-29.0) H 12/12/23 06:45 ABG O2 Saturation 87 % (94-98) L* 12/12/23 06:45 ABG Base Excess 6.6 mmol/L (-2.0-3.0) H 12/12/23 06:45 Kike Test POSITIVE 12/12/23 06:45 VBG pH 7.551 (7.31-7.41) H 12/14/23 04:32 Ionized Calcium 1.06 mmol/L (1.15-1.33) L 12/14/23 04:32 Respiration Rate 12 b/min 12/12/23 06:45 O2 Delivery Device BiPAP 12/12/23 06:45 FiO2 30.00 12/12/23 06:45 EPAP 5 cmH2O 12/12/23 06:45 IPAP 10 cmH2O 12/12/23 06:45 Sodium 136 mmol/L (135-145) 12/13/23 22:50 Potassium 3.9 mmol/L (3.5-4.5) 12/14/23 04:32 Chloride 103 mmol/L (101-111) 12/13/23 22:50 Carbon Dioxide 23 mmol/L (21-32) 12/13/23 22:50 Anion Gap 10.0 (6-13) 12/13/23 22:50 BUN 23 mg/dL (6-20) H 12/13/23 22:50 Creatinine 0.6 mg/dL (0.6-1.3) 12/13/23 22:50 Estimated GFR (MDRD) 105 (>89) 12/13/23 22:50 Glucose 124 mg/dL (74-104) H 12/13/23 22:50 POC Whole Bld Glucose 139 mg/dL (70 - 100) H 12/13/23 15:57 Lactic Acid 0.8 mmol/L (0.5-2.2) 12/12/23 10:24 Calcium 9.7 mg/dL (8.5-10.3) 12/13/23 22:50 Phosphorus 4.5 mg/dL (2.5-5.0) 12/14/23 04:32 Magnesium 2.2 mg/dL (1.7-2.3) 12/14/23 04:32 Total Bilirubin 0.6 mg/dL (0.2-1.0) 12/08/23 23:46 AST 21 IU/L (10-42) 12/08/23 23:46 ALT 14 IU/L (10-60) 12/08/23 23:46 Alkaline Phosphatase 87 IU/L (42-121) 12/08/23 23:46 Troponin I High Sens 43.9 ng/L (2.3-14.8) H* 12/09/23 01:58 B-Natriuretic Peptide 178 pg/mL (5-100) H 12/08/23 23:46 Total Protein 7.3 g/dL (6.4-8.9) 12/08/23 23:46 Albumin 3.9 g/dL (3.2-5.5) 12/08/23 23:46 Globulin 3.4 g/dL (2.1-4.2) 12/08/23 23:46 Albumin/Globulin Ratio 1.1 (1.0-2.2) 12/08/23 23:46 Lipase < 10 U/L (11-82) L 12/08/23 23:46 Procalcitonin Immunoas 0.26 ng/mL (<0.5) 12/09/23 01:58 Nasal Adenovirus (PCR) NOT DETECTED 12/08/23 23:46 Nasal B. parapertussis DNA (PCR) NOT DETECTED 12/08/23 23:46 Nasal Coronavir 229E PCR NOT DETECTED 12/08/23 23:46 Nasal Coronavir HKU1 PCR NOT DETECTED 12/08/23 23:46 Nasal Coronavir NL63 PCR NOT DETECTED 12/08/23 23:46 Nasal Coronavir OC43 PCR NOT DETECTED 12/08/23 23:46 Nasal Enterovir/Rhinovir PCR DETECTED A 12/08/23 23:46 Nasal Influenza B PCR NOT DETECTED 12/08/23 23:46 Nasal Influenza A PCR NOT DETECTED 12/08/23 23:46 Nasal Parainfluen 1 PCR NOT DETECTED 12/08/23 23:46 Nasal Parainfluen 2 PCR NOT DETECTED 12/08/23 23:46 Nasal Parainfluen 3 PCR NOT DETECTED 12/08/23 23:46 Nasal Parainfluen 4 PCR NOT DETECTED 12/08/23 23:46 Nasal RSV (PCR) NOT DETECTED 12/08/23 23:46 Nasal Screen MRSA (PCR) POSITIVE (NEGATIVE) A* 12/11/23 07:00 Nasal B.pertussis DNA PCR NOT DETECTED 12/08/23 23:46 Nasal C.pneumoniae (PCR) NOT DETECTED 12/08/23 23:46 Fe Human Metapneumo PCR NOT DETECTED 12/08/23 23:46 Nasal M.pneumoniae (PCR) NOT DETECTED 12/08/23 23:46 Nasal SARS-CoV-2 (PCR) NOT DETECTED 12/08/23 23:46 Sepsis Event Note (H) - Evaluation Current Stage of Sepsis: Sepsis Possible source of Sepsis: positive: Pulmonary (Viral) - Sepsis Criteria Sepsis Criteria: Recorded Heart Rate greater than 90 bpm, Recorded Respiratory Rate greater than 20, Respiratory: Increasing oxygen requirements, WBC count greater than 12,000 or less than 4000
[2023-12-15 05:23] LABS: VBG PH 7.518 (7.31-7.41)
[2023-12-15 05:24] LABS: CALCIUM, IONIZED 1.1 mmol/L (1.15-1.33)
[2023-12-15 05:56] LABS: MAGNESIUM 2.1 mg/dL (1.7-2.3); PHOSPHORUS 3.7 mg/dL (2.5-5.0); POTASSIUM 3.8 mmol/L (3.5-4.5)
[2023-12-15] MEDS: CALCIUM CARBONATE CHEW 500 MG TABLET PO SCH (06:31)
[2023-12-15] MEDS: POTASSIUM CHLORIDE 20 MEQ TABLET PO ONE (06:31)
--- NOTE | 2023-12-15 17:43 | PROVIDER PROGRESS NOTE ---
Assessment/Plan - Problem List (1) Asthma exacerbation Qualifiers: Asthma severity: severe Asthma persistence: persistent Qualified Code(s): J45.51 - Severe persistent asthma with (acute) exacerbation Assessment/Plan: Asthma exacerbation most likely secondary to rhinovirus infection. Continue Solu-Medrol and bronchodilator therapy. Continue nebulized formoterol.Solu-Medrol decreased to 40 mg intravenously twice daily. (2) Acute hypoxemic respiratory failure Conclusion/Plan: From Asthma and rhinovirus. O2 support. Patient remains off of bilevel positive airway pressure therapy throughout the night. Continue Zosyn. Morphine and Ativan have been discontinued. (3) Sepsis Conclusion/Plan: Sepsis is resolving. Patient remains on Zosyn for empiric antibiotic coverage given her significant leukocytosis. Continue to monitor hemodynamics. (4) Type 2 [place] (myocardial infarction) Conclusion/Plan: From hypoxemia and acute asthma. No evidence of ACS. (5) Rhinovirus infection Conclusion/Plan: Supportive care. (6) Hypokalemia Conclusion/Plan: Replace as needed. - Current Meds Current Meds: Current Medications Generic Name Dose Route Start Last Admin Trade Name Freq PRN Reason Stop Dose Admin Acetaminophen 650 mg 12/09/23 09:57 12/15/23 00:06 Acetaminophen 325 Mg Tablet PO 650 mg Q4HR PRN Administration Pain 1 to 4, or Fever Albuterol/Ipratropium 3 ml 12/09/23 11:00 12/15/23 15:12 Ipratropium/Albuterol 3 Ml Neb INH 3 ml RTQID ALEXANDRA Administration Alcohol 1 amp 12/11/23 12:00 12/15/23 08:08 Ethyl Alcohol 62% Swab Ampule FE 1 amp BID ALEXANDRA Administration Ascorbic Acid 500 mg 12/10/23 12:00 12/15/23 08:08 Ascorbic Acid 500 Mg Tablet PO 500 mg DAILY ALEXANDRA Administration Enoxaparin Sodium 40 mg 12/09/23 10:00 12/15/23 08:09 Enoxaparin 40 Mg/0.4 Ml Syringe SUBQ 40 mg DAILY ALEXANDRA Administration Guaifenesin 600 mg 12/09/23 21:00 12/15/23 08:08 Guaifenesin 600 Mg Tablet PO 600 mg BID ALEXANDRA Administration Piperacillin Sod/Tazobactam 100 mls @ 200 mls/hr 12/12/23 12:00 12/15/23 17:06 Sod 3.375 gm/ Sodium Chloride IV 100 mls/hr Q6H ALEXANDRA Administration Lorazepam 0.5 mg 12/11/23 07:46 12/15/23 00:06 Lorazepam 2 Mg/Ml Vial IVP 0.5 mg Q4H PRN Administration Anxiety Morphine Sulfate 2 mg 12/12/23 11:22 12/15/23 05:05 Morphine 2 Mg/Ml Carpuject IVP 2 mg Q2HR PRN Administration Severe Pain (Level 7-10) Nicotine 1 patch 12/09/23 12:00 12/15/23 08:08 Nicotine 21 Mg Patch TOP 1 patch DAILY ALEXANDRA Administration Multivit/Folic Acid/Iron 1 tab 12/10/23 12:00 12/15/23 08:08 Vitamin Tablet PO 1 tab DAILYWM ALEXANDRA Administration Sodium Chloride 10 ml 12/09/23 09:57 12/13/23 02:00 Sodium Chloride Flush 0.9% 10 Ml Syringe IVP 10 ml PRN PRN Administration NEEDED PER PROVIDER ORDERS Sodium Chloride 10 ml 12/09/23 17:00 12/15/23 11:07 Sodium Chloride Flush 0.9% 10 Ml Syringe IVP 10 ml 0100,0900,1700 ALEXANDRA Administration - Lab Result Fish Bone Diagrams: 12/14/23 17:35 12/15/23 04:48 - Additional Planning My Orders: My Active Orders 12/15/23 17:28 Admit \ Transfer \ Status [RC] .ONCE 12/15/23 21:00 Methadone [Methadone Hcl] 5 mg PO BID methylPREDNISolone SUCCINATE [SOLU-Medrol (40MG VIAL)] 40 mg IVP BID Subjective - Subjective Patient Reports: Other (Alert. Denies chest pain and abdominal pain. No other complaints at this time.) Objective Vital Signs: Vital Signs - 24 hr 12/14/23 12/14/23 12/14/23 18:00 19:00 19:05 Temperature Heart Rate 87 Heart Rate [ 86 87 Monitoring electrodes] Respiratory 32 H 24 20 Rate Blood Pressure 133/91 H 138/88 H [Left Brachial artery] Blood Pressure [Right Brachial artery] O2 Saturation 95 93 If not protocol 4 4 4 : Oxygen Flow, liters/minute 12/14/23 12/14/23 12/14/23 20:00 21:00 22:00 Temperature 37 C Heart Rate Heart Rate [ 91 91 85 Monitoring electrodes] Respiratory 28 H 27 H 24 Rate Blood Pressure 139/78 H 142/76 H 140/91 H [Left Brachial artery] Blood Pressure [Right Brachial artery] O2 Saturation 93 94 93 If not protocol 5 5 5 : Oxygen Flow, liters/minute 12/14/23 12/15/23 12/15/23 23:00 00:00 01:00 Temperature Heart Rate Heart Rate [ 95 75 71 Monitoring electrodes] Respiratory 24 28 H 26 H Rate Blood Pressure 149/91 H 133/89 H 142/100 H [Left Brachial artery] Blood Pressure [Right Brachial artery] O2 Saturation 94 97 98 If not protocol 5 5 4 : Oxygen Flow, liters/minute 12/15/23 12/15/23 12/15/23 02:00 03:00 04:00 Temperature Heart Rate Heart Rate [ 77 81 81 Monitoring electrodes] Respiratory 26 H 24 26 H Rate Blood Pressure 150/93 H 141/97 H [Left Brachial artery] Blood Pressure [Right Brachial artery] O2 Saturation 95 93 95 If not protocol 3 3 3 : Oxygen Flow, liters/minute 12/15/23 12/15/23 12/15/23 05:00 06:00 07:00 Temperature 37.0 C Heart Rate Heart Rate [ 76 73 Monitoring electrodes] Respiratory 24 22 22 Rate Blood Pressure 124/80 142/91 H 150/88 H [Left Brachial artery] Blood Pressure [Right Brachial artery] O2 Saturation 94 94 93 If not protocol 3 2 2 : Oxygen Flow, liters/minute 12/15/23 12/15/23 12/15/23 07:45 08:00 09:00 Temperature 36.4 C L Heart Rate Heart Rate [ 80 74 Monitoring electrodes] Respiratory 20 24 Rate Blood Pressure 163/92 H 127/85 H [Left Brachial artery] Blood Pressure [Right Brachial artery] O2 Saturation 92 94 If not protocol 3 2 2 : Oxygen Flow, liters/minute 12/15/23 12/15/23 12/15/23 09:04 10:00 10:49 Temperature Heart Rate 79 Heart Rate [ 78 91 Monitoring electrodes] Respiratory 24 21 17 Rate Blood Pressure 127/85 H 139/90 H [Left Brachial artery] Blood Pressure [Right Brachial artery] O2 Saturation 90 L 90 L If not protocol 4 5 3 : Oxygen Flow, liters/minute 12/15/23 12/15/23 12/15/23 11:00 13:00 15:00 Temperature Heart Rate Heart Rate [ 75 87 Monitoring electrodes] Respiratory 24 24 Rate Blood Pressure [Left Brachial artery] Blood Pressure 154/94 H 148/93 H [Right Brachial artery] O2 Saturation 90 L 94 If not protocol 4 3 5 : Oxygen Flow, liters/minute 12/15/23 12/15/23 15:21 17:00 Temperature 37.2 C Heart Rate 79 Heart Rate [ 90 Monitoring electrodes] Respiratory 17 24 Rate Blood Pressure 128/88 H [Left Brachial artery] Blood Pressure [Right Brachial artery] O2 Saturation 90 L If not protocol 3 3 : Oxygen Flow, liters/minute Oxygen O2 Source Nasal cannula Oxygen Flow Rate 15 I&O (Last 24 Hrs): Intake and Output Totals x24h 12/13/23 12/14/23 12/15/23 23:59 23:59 23:59 Intake Total 1200 1520 1951 Output Total 1200 100 0 Balance 0 1420 1951 General: Alert, Oriented x3, No acute distress Neck: Supple, No JVD, No thyromegaly Neuro: Non Focal Cardiovascular: Other (Positive S1-S2 no extra heart sounds.) Respiratory: Other (Markedly improved air exchange in all lung tellez. Mild expiratory wheezing. No crackles.) Abdomen: Other (Soft nontender nondistended positive bowel sounds.) Extremities: No cyanosis, No edema Skin: No rashes - Results Results: Laboratory Results WBC 20.1 x10^3/uL (4.8-10.8) H 12/14/23 17:35 RBC 6.41 10^6/uL (4.20-5.40) H 12/14/23 17:35 Hgb 17.4 g/dL (12.0-16.0) H 12/14/23 17:35 Hct 55.7 % (37.0-47.0) H 12/14/23 17:35 MCV 86.9 fL (81.0-99.0) 12/14/23 17:35 MCH 27.1 pg (27.0-31.0) 12/14/23 17:35 MCHC 31.2 g/dL (32.0-36.0) L 12/14/23 17:35 RDW 13.2 % (12.0-15.0) 12/14/23 17:35 Plt Count 421 10^3/uL (130-450) 12/14/23 17:35 MPV 9.7 fL (7.9-10.8) 12/14/23 17:35 Neut # (Auto) Not Reportable 12/14/23 17:35 Lymph # (Auto) Not Reportable 12/14/23 17:35 [place] # (Auto) Not Reportable 12/14/23 17:35 Eos # (Auto) Not Reportable 12/14/23 17:35 Baso # (Auto) Not Reportable 12/14/23 17:35 Absolute Nucleated RBC Not Reportable 12/14/23 17:35 Total Counted 100 12/14/23 17:35 Band Neuts % (Manual) 1 % (0-10) 12/14/23 17:35 Reactive Lymphs % (Man) 1 % 12/12/23 10:24 Abnorm Lymph % (Manual) 0 % 12/14/23 17:35 Myelocytes % 2 % (-0) H 12/14/23 17:35 Nucleated RBC % Not Reportable 12/14/23 17:35 Neutrophils # (Manual) 17.3 10^3/uL (1.5-6.6) H 12/14/23 17:35 Lymphocytes # (Manual) 1.0 10^3/uL (1.5-3.5) L 12/14/23 17:35 Monocytes # (Manual) 1.4 10^3/uL (0.0-1.0) H 12/14/23 17:35 Eosinophils # (Manual) 0.0 10^3/uL (0-0.7) 12/14/23 17:35 Basophils # (Manual) 0.0 10^3/uL (0-0.1) 12/14/23 17:35 Differential Comment MANUAL DIFFERENTIAL 12/14/23 17:35 Platelet Estimate NORMAL (130-450,000) (NORMAL) 12/14/23 17:35 Platelet Morphology NORMAL APPEARANCE (NORMAL) 12/14/23 17:35 RBC Morph Micro Appear NORMAL APPEARANCE (NORMAL) 12/14/23 17:35 D-Dimer 365.1 ng/mL (200.0-255.0) H 12/08/23 23:46 Bld Gas Analysis Time 0655 12/12/23 06:45 Sample Site RIGHT RADIAL 12/12/23 06:45 ABG pH 7.46 (7.35-7.45) H 12/12/23 06:45 ABG pCO2 46 mmHg (34-45) H 12/12/23 06:45 ABG pO2 53 mmHg (80-100) L 12/12/23 06:45 ABG HCO3 31.8 mmol/L (22.0-26.0) H 12/12/23 06:45 ABG Total CO2 33.2 MMOL/L (21.0-29.0) H 12/12/23 06:45 ABG O2 Saturation 87 % (94-98) L* 12/12/23 06:45 ABG Base Excess 6.6 mmol/L (-2.0-3.0) H 12/12/23 06:45 Kike Test POSITIVE 12/12/23 06:45 VBG pH 7.518 (7.31-7.41) H 12/15/23 04:48 Ionized Calcium 1.10 mmol/L (1.15-1.33) L 12/15/23 04:48 Respiration Rate 12 b/min 12/12/23 06:45 O2 Delivery Device BiPAP 12/12/23 06:45 FiO2 30.00 12/12/23 06:45 EPAP 5 cmH2O 12/12/23 06:45 IPAP 10 cmH2O 12/12/23 06:45 Sodium 136 mmol/L (135-145) 12/13/23 22:50 Potassium 3.8 mmol/L (3.5-4.5) 12/15/23 04:48 Chloride 103 mmol/L (101-111) 12/13/23 22:50 Carbon Dioxide 23 mmol/L (21-32) 12/13/23 22:50 Anion Gap 10.0 (6-13) 12/13/23 22:50 BUN 23 mg/dL (6-20) H 12/13/23 22:50 Creatinine 0.6 mg/dL (0.6-1.3) 12/13/23 22:50 Estimated GFR (MDRD) 105 (>89) 12/13/23 22:50 Glucose 124 mg/dL (74-104) H 12/13/23 22:50 POC Whole Bld Glucose 139 mg/dL (70 - 100) H 12/13/23 15:57 Lactic Acid 0.8 mmol/L (0.5-2.2) 12/12/23 10:24 Calcium 9.7 mg/dL (8.5-10.3) 12/13/23 22:50 Phosphorus 3.7 mg/dL (2.5-5.0) 12/15/23 04:48 Magnesium 2.1 mg/dL (1.7-2.3) 12/15/23 04:48 Total Bilirubin 0.6 mg/dL (0.2-1.0) 12/08/23 23:46 AST 21 IU/L (10-42) 12/08/23 23:46 ALT 14 IU/L (10-60) 12/08/23 23:46 Alkaline Phosphatase 87 IU/L (42-121) 12/08/23 23:46 Troponin I High Sens 43.9 ng/L (2.3-14.8) H* 12/09/23 01:58 B-Natriuretic Peptide 178 pg/mL (5-100) H 12/08/23 23:46 Total Protein 7.3 g/dL (6.4-8.9) 12/08/23 23:46 Albumin 3.9 g/dL (3.2-5.5) 12/08/23 23:46 Globulin 3.4 g/dL (2.1-4.2) 12/08/23 23:46 Albumin/Globulin Ratio 1.1 (1.0-2.2) 12/08/23 23:46 Lipase < 10 U/L (11-82) L 12/08/23 23:46 Procalcitonin Immunoas 0.26 ng/mL (<0.5) 12/09/23 01:58 Nasal Adenovirus (PCR) NOT DETECTED 12/08/23 23:46 Nasal B. parapertussis DNA (PCR) NOT DETECTED 12/08/23 23:46 Nasal Coronavir 229E PCR NOT DETECTED 12/08/23 23:46 Nasal Coronavir HKU1 PCR NOT DETECTED 12/08/23 23:46 Nasal Coronavir NL63 PCR NOT DETECTED 12/08/23 23:46 Nasal Coronavir OC43 PCR NOT DETECTED 12/08/23 23:46 Nasal Enterovir/Rhinovir PCR DETECTED A 12/08/23 23:46 Nasal Influenza B PCR NOT DETECTED 12/08/23 23:46 Nasal Influenza A PCR NOT DETECTED 12/08/23 23:46 Nasal Parainfluen 1 PCR NOT DETECTED 12/08/23 23:46 Nasal Parainfluen 2 PCR NOT DETECTED 12/08/23 23:46 Nasal Parainfluen 3 PCR NOT DETECTED 12/08/23 23:46 Nasal Parainfluen 4 PCR NOT DETECTED 12/08/23 23:46 Nasal RSV (PCR) NOT DETECTED 12/08/23 23:46 Nasal Screen MRSA (PCR) POSITIVE (NEGATIVE) A* 12/11/23 07:00 Nasal B.pertussis DNA PCR NOT DETECTED 12/08/23 23:46 Nasal C.pneumoniae (PCR) NOT DETECTED 12/08/23 23:46 Fe Human Metapneumo PCR NOT DETECTED 12/08/23 23:46 Nasal M.pneumoniae (PCR) NOT DETECTED 12/08/23 23:46 Nasal SARS-CoV-2 (PCR) NOT DETECTED 12/08/23 23:46 Stl C. diff Tox B Gene NEGATIVE (NEGATIVE) 12/14/23 19:45 Sepsis Event Note (H) - Evaluation Current Stage of Sepsis: Sepsis Possible source of Sepsis: positive: Pulmonary (Viral) - Sepsis Criteria Sepsis Criteria: Recorded Heart Rate greater than 90 bpm, Recorded Respiratory Rate greater than 20, Respiratory: Increasing oxygen requirements, WBC count greater than 12,000 or less than 4000
[2023-12-15 18:08] VITALS: BP 132/81; O2SAT 94
[2023-12-15] MEDS ORDERED: methylPREDNISolone SUCCINATE 40 MG/ML VIAL IVP SCH (21:00)
[2023-12-15] MEDS ORDERED: METHADONE 5 MG TABLET PO SCH (21:00)
--- NOTE | 2023-12-25 02:19 | DISCHARGE SUMMARY ---
Discharge Summary Admit Date: 12/09/23 Discharge Date: 12/15/23 Discharging Provider: Norris Gonsalez MD Code Status: Attempt Resuscitation Condition at Discharge: Stable Discharge Disposition: Against Medical Advice Discharge Facility Name: [facility] - DIAGNOSES Admission Diagnoses: (1) Asthma exacerbation (2) Acute hypoxemic respiratory failure (3) Sepsis (4) Type 2 SD (myocardial infarction) (5) Rhinovirus infection (6) Hypokalemia Discharge Diagnoses with Status of Each Condition: (1) Asthma exacerbation (2) Acute hypoxemic respiratory failure (3) Sepsis (4) Type 2 SD (myocardial infarction) (5) Rhinovirus infection (6) Hypokalemia - HPI History of Present Illness: Per Dr. Kiran's History and Physical: This is a 53 F with history of asthma and polysubstance abuse including IV drug abuse came with SOB. The pt reports that she has been having SOB for > 3 days and it has been getting worse. She has productive cough with yellow sputum and has had subjective fever. She denies any sick contact, N/V or diarrhea. Her PO intake has been okay. She used her inhaler at home and that helped her breathing most. Due to the worsening SOB, she decided to come to ED. ED course: Vital signs showed HR 113, RR 28 and O2 sat 80's on RA which improved to 94% on 6 liters. Work up revealed K 3.2, glucose 132, Trop 45 and then 43.9, BNP 178, D dimer 365.1, WBC 13.4 and positive Rhinovirus. CXR was unremarkable. CTA chest showed diffuse viral infection but no PE. The pt received 1 liter of NS, duoneb, albuterol neb x3 and decadron 10mg IV. - HOSPITAL COURSE Hospital Course: On December 11, 2023 patient's clinical condition worsened and she was transferred from the medical floor to the intensive care unit for close hemodynamic monitoring. Treatment was initiated with bilevel positive airway pressure therapy with an IPAP/EPAP of 10/5.In addition she received IV corticosteroids and bronchodilators. Over the course the next several days her clinical condition improved and she was transferred from the intensive care unit back to the medical floor. However, on December 15, 2023 the patient made the decision to leave AGAINST MEDICAL ADVICE. Prior to her leaving, she was counseled that leaving AGAINST MEDICAL ADVICE may result in significant morbidity and mortality. Patient signed out AGAINST MEDICAL ADVICE. - ALLERGIES Allergies/Adverse Reactions: Allergies Allergy/AdvReac Type Severity Reaction Status Date / Time No Known Drug Allergies Allergy Verified 12/08/23 23:44 - MEDICATIONS Home Medications: Ambulatory Orders Medication Instructions Recorded Confirmed No Known Home Medications 12/08/23 12/08/23 - PHYSICAL EXAM AT DISCHARGE General Appearance: positive: No acute distress, Alert Eyes Bilateral: positive: PERRL Neck: positive: Thyroid nml, No JVD, Trachea midline Respiratory: positive: Other (Fair air exchange in all lung tellez no wheezing no crackles) Cardiovascular: positive: Other (Positive S1-S2 no extra heart sounds.) Abdomen: positive: Other (Positive S1-S2 no extra heart sounds.) Skin: positive: No rash Neurologic/Psychiatric: positive: Oriented x3, Motor nml - LABS Result Diagrams: 12/14/23 17:35 12/15/23 04:48 - SEPSIS Current Stage of Sepsis: Sepsis Possible source of Sepsis: Pulmonary (Viral) Sepsis Criteria: Recorded Heart Rate greater than 90 bpm, Recorded Respiratory Rate greater than 20, Respiratory: Increasing oxygen requirements, WBC count greater than 12,000 or less than 4000 - TIME SPENT Time Spent in Discharge (Minutes): 20
== END 2023-12-15 19:30 | disposition left against medical advice (07) | DRG 871 ==
LOC: ED 23:19 → MS2 12-09 09:56 → ICU 12-11 07:58 → MS2 12-15 18:14
PROVIDERS: ADMIT Internal Medicine; ATTEND Internal Medicine
DX: A41.89 Other specified sepsis (principal); I21.A1 Myocardial infarction type 2; J96.01 Acute respiratory failure with hypoxia; J45.901 Unspecified asthma with (acute) exacerbation; F11.93 Opioid use, unspecified with withdrawal; B34.8 Other viral infections of unspecified site; E87.6 Hypokalemia; R65.20 Severe sepsis without septic shock; F41.9 Anxiety disorder, unspecified; F17.200 Nicotine dependence, unspecified, uncomplicated; Z20.822 Contact with and (suspected) exposure to COVID-19
CPT/HCPCS: 36415; 36600; 71045; 71275; 80048; 80053; 82330; 82803; 83605; 83690; 83735; 83880; 84100; 84132; 84145; 84484; 85025; 85027; 85379; 87040; 87150; 87493; 87633; 93005; 94640; 94660; 94664; 96374; 99285; A9270; J1650; J2060; Q9967

== ENCOUNTER 2024-04-22 17:38 | Emergency (ER) | payer MEDICAID ==
[2024-04-22 20:34] VITALS: BP 130/80; O2SAT 100
--- NOTE | 2024-04-22 20:44 | ED Physician Documentation ---
PD HPI SKIN - Stated complaint Stated Complaint: RT ARM INJ - Chief complaint Chief Complaint: Wound - Additional information Additional information: 53-year-old female presents to the emergency department for concerns of skin infection. Patient says that she uses IV fentanyl and noticed an abscess to her right elbow fold yesterday that eventually self drained there is no redness and swelling around that abscess and she is hoping for antibiotics. She does not believe she has had any fevers or chills at this point in time she says that she would not like any additional resources with how to get off illicit IV drug use but says that she knows who to reach out to if she changes her mind. PD PAST MEDICAL HISTORY - Past Medical History Past Medical History: Yes Cardiovascular: None Respiratory: Asthma Neuro: None Endocrine/Autoimmune: None GI: None STARBUCKS CLERK: None : None HEENT: None Psych: None Musculoskeletal: None Derm: None - Past Surgical History Past Surgical History: Yes /STARBUCKS CLERK: section - Present Medications Home Medications: Ambulatory Orders Medication Instructions Recorded Confirmed Doxycycline [Vibramycin] 100 mg PO BID 7 Days #14 tablet 04/22/24 cephALEXin [Keflex] 500 mg PO Q6H 7 Days #28 cap 04/22/24 - Allergies Allergies/Adverse Reactions: Allergies Allergy/AdvReac Type Severity Reaction Status Date / Time No Known Drug Allergies Allergy Verified 04/22/24 18:03 - Social History Does the pt smoke?: Yes Smoking Status: Current every day smoker Does the pt drink ETOH?: Yes Does the pt have substance abuse?: Yes Substance Use and Type: Meth, Other - Immunizations Immunizations are current?: Yes - POLST Patient has POLST: No POLST Status: Full Code PD ED PE NORMAL - Vitals Vital signs reviewed: Yes - General General: Alert and oriented X 3, No acute distress, Well developed/nourished - HEENT HEENT: Atraumatic - Derm Derm: Other (Multiple wounds to patient's bilateral upper extremities and various healing stages. There does appear to be an abscess at the fold of her right elbow that appears to have ruptured with a very small new one forming with surrounding soft tissue erythematous.) - Extremities Extremities: No deformity - Psych Psych: Normal mood Results - Vitals Vitals: Vital Signs - 24 hr 04/22/24 04/22/24 18:03 20:08 Temperature 37.2 C 37.0 C Heart Rate 101 H 90 Respiratory 18 18 Rate Blood Pressure 141/81 H 130/80 O2 Saturation 98 100 Oxygen O2 Source Room air PD Medical Decision Making - ED course ED course: 53-year-old female has multiple wounds to bilateral upper extremities and the right fold of her elbow there was an abscess that does appear to have self ruptured there is a very small furuncle that appears to be forming just below it that is not large enough to I&D. She started on Keflex and Doxy here in the emergency department and prescription was sent to her preferred pharmacy she is given strict ER return precautions she is told to follow-up with ER in 2 days if no improvement of symptoms she says that she has multiple resources of how to come off of illicit IV drug use but at this point in time does not want to speak to anyone about it. Departure - Departure Disposition: 01 Home, Self Care Clinical Impression: Illicit drug use Instructions: ED Staph Infec Abx Tx Only, ED Abscess IandD Prescriptions: cephALEXin [Keflex] 500 mg PO Q6H 7 Days #28 cap Doxycycline [Vibramycin] 100 mg PO BID 7 Days #14 tablet Comments: Thank you for trusting us with your care. I have sent a prescription of Keflex and doxycycline to your preferred pharmacy as well as given you your first dose here tonight. You will take this as prescribed for the next 7 days. As we discussed this is just a Band-Aid solution you need to quit using IV drugs as this will continue to happen and it will continue to get worse. I would call around to the local resources that you are aware of and start pursuing your past recovery and getting clean. If you are having difficulty with doing so please come back to the emergency department as we can try and connect you with the social worker assistant during business hours. Please come back to the ER for having any worsening signs or symptoms of infection if being on the antibiotics for a total of 2 days. Wishing you the best. Forms: PCP List Discharge Date/Time: 04/22/24 20:51
[2024-04-22] MEDS: cephALEXin 250 MG CAPSULE PO STA (20:50)
[2024-04-22] MEDS: DOXYCYCLINE 100 MG TABLET PO STA (20:50)
== END 2024-04-22 20:51 | disposition home or self-care (01) ==
LOC: ED 17:38
DX: L02.413 Cutaneous abscess of right upper limb (principal); L02.423 Furuncle of right upper limb; F17.200 Nicotine dependence, unspecified, uncomplicated
CPT/HCPCS: 99283; A9270